=== PATIENT | female | born 1965 | race Caucasian/White ===

== ENCOUNTER 2023-04-03 14:46 | Outpatient (AMB) | payer BC, SELFPAY ==
--- NOTE | 2023-04-03 14:53 | A.OFFVIS_ITS ---
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 I can get them from 4 hours to 2 days Allergies Sulfa (Sulfonamide Antibiotics) Allergy (Intermediate, Verified 04/07/23 14:07) Rash sulfite Allergy (Mild, Verified 04/07/23 14:07) Vomiting Medication List - Last Reconciled 04/03/23 by FANY Rae bupropion HCl (Wellbutrin SR) 100 mg PO DAILY cholecalciferol (vitamin D3) 25 mcg PO DAILY esomeprazole magnesium (Nexium) 20 mg PO DAILY mecobalamin (vitamin B12) 1,000 mcg PO DAILY sucralfate 1 g PO BID HPI HPI Comments History of Present Illness Details Right-handed 57-yr-old female presents for new pt evaluation of headache disorder. PMH is significant for: Lifelong anemia, GERD, sleep difficulties, right eye strabismus. Pt reports she starting having bothersome headaches about a year ago, in Feb 2022. No specific precipitating triggers. Denies previous h/o bothersome headaches. Does note a life long head tilt to the right. Her neck has always been tight. Endorses bruxism, wears a mouth guard every night. Denies head tremor. Denies diploia. Denies dizziness. Since the onset of the headaches, she has tried muscle relaxers, physical therapy, massage, adhesive hot pads, CBD or Aspercreme under the jaw, professional massage, meditation, stretching, and taking a slow walk, which can help but have not fully prevented disabling headaches. She does note that after the massage she will have less of a head tilt. Patient also endorses a history of nocturnal foot cramps, restless leg syndrome- creepy crawling sensation in left lower extremity- managed with stretching or rarely p.r.n. clonazepam, back pain. Rarely lightheadedness w/ bending over. Pertinent denials include: Tremor, constipation, dizziness. Denies family history of tremor or movement disorder. Headache questionnaire: Previous work-up? C-spine x-ray- cervical stenosis. Typical headache characteristics: Prodrome symptoms? Unsure Aura? Denies Location, quality, characteristics? Unilateral (right or left sided) cervical paraspinal deep dull severe pain, a/w ipsilateral jaw pain, occass ipsilateral facial spasm/tension. this can then move to the alternate side. Pain intensity? can be severe Associated symptoms? photophobia, nausea, dry heaves. Focal weakness, Parethesias, Autonomic s/s? denies Postdrome? fatigue, GI upset, head/jaw/shoulder pain. Triggers? shoulder tension, sitting for a long time on her computer. Time of day? almost always when she wakes up Duration? If severe- 1-2 days in total. If milder and responsive to shoulder/neck massage- 4 hrs. Frequency? In February she had 7 headache attacks, 1 of which lasted 2 days How does headache impact your life? 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 Current acute medication use/interventions: Tylenol does not help. Does not use Advil d/t NSAIDs causes gastritis. Previous acute medication use: Denies Current preventative medication use: Cyclobenzaprine 5mg qhs prn- helps but causes am grogginess. Previous preventative medication use: Denies Non-pharmacological interventions: tries to massage her neck, or heat- may take the edge off if more severe, or help if milder. [facility] Family History (Updated 04/03/23 @ 15:06 by SEJAL Gunter) Father HTN (hypertension) Stroke Sister Diabetes Mother Diverticulitis Social History (Updated 04/03/23 @ 14:59 by SEJAL Gunter) Alcohol intake: never Patient Tobacco Use Status: Never used Tobacco Review of Systems Const Details: See scanned ROS form Physical Exam Vital Signs: Last Vital Signs Pulse 77 04/03/23 14:54 BP 118/70 04/03/23 14:54 Pulse Ox 100 04/03/23 14:54 Oxygen Delivery Method Room Air 04/03/23 14:54 BMI result Body Mass Index 20.8 HEENT Other: No palpable scalp tenderness. Head: Yes normocephalic Resp Effort & Inspection: normal respiratory effort and able to speak in complete sentences Neuro Other: Alert and oriented x3 EOM intact with exception of right eye deviates laterally on convergence No nystagmus Mild lower facial asymmetry- ? Left masseter region hypertrophy Right spasmodic torticollis. Marked bilateral posterior paraspinal muscle tightness and tenderness. Bilateral, R > L, sternocleidomastoid mastoid muscle tightness and tenderness Left lower focal tenderness on palpation., nonradiating No head or peripheral tremor. No notable tone in upper extremities. Goixsk-vq-zvhw intact. Gait normal Tandem walk normal. Romberg negative. DTRs 2+ throughout. Deep tendon reflexes (DTR's): Right triceps reflex intensity grade: 2+, Left triceps reflex intensity grade: 2+, Rt Biceps (C5, C6): 2+, Left biceps reflex intensity grade: 2+, Right brachioradialis reflex intensity grade: 2+, Left brachioradialis reflex intensity grade: 2+, Right patellar reflex intensity grade: 2+ and Left patellar reflex intensity grade: 2+ Pupils: Normal pupillary reactivity/response: bilateral Psych Appearance: grossly normal Mental Status: mental status grossly normal Speech and movement: Normal speech and movement present Affect: normal affect Attitude: cooperative Thought process: Normal thought process present Assessment & Plan Assessment & Plan (1) Spasmodic torticollis: Code(s): G24.3 - Spasmodic torticollis (2) New onset headache: Comment: Severe posterior mid-cervical pain into right or left occipital pain a/w ipsilateral lower temporal, and jaw pain A/w ipsilateral facial spasm/tension, photophobia, nausea, dry heaves. Code(s): R51.9 - Headache, unspecified (3) Cervicalgia of jtkxwonu-zilpiys-ugxrw region: Code(s): M54.2 - Cervicalgia (4) Strabismic amblyopia of right eye: Code(s): H53.031 - Strabismic amblyopia, right eye (5) Cervical spinal stenosis: Code(s): M48.02 - Spinal stenosis, cervical region Plan Will request recent labs from PCP- consider checking additional labs upon review. Pt is advised to undergo c-spine MRI w/wo to assess for secondary etiologies of painful spasmodic torticollis s/s Pt is advised to undergo brain MRI w/wo to assess for secondary etiologies of spasmodic torticollis, facial asymmetry, right eye stabismus/amblyopia, and worsening headaches. Pt requests open MRI and may use her Clonazepam 1 tab prior to MRI- advised to have someone else drive her. Start Botox 100 units IM q 12 weeks for spasmodic torticollis. Sumatriptan- was ordered but changed d/t pt has a sulfa and sulfite allergy. Thus, trial Rizatriptan 10mg tab- 1/4 - 1 tab at onset of headache, MR x's 1 (max 2 tabs per day), may take w/ Tylenol 650-1000mg prn. Hold cyclobenzaprine. Start Baclofen 5-10mg qhs prn. f/u in 2 months or sooner prn. Orders: Orders MR head/brain wo/w con 04/03/23 G24.3 - Spasmodic torticollis, H53.031 - Strabismic amblyopia, right eye, Q67.0 - Congenital facial asymmetry, R51.9 - Headache, unspecified MR cervical spine wo con 04/03/23 G24.3 - Spasmodic torticollis, M48.02 - Spinal stenosis, cervical region, M54.2 - Cervicalgia Medications: New clonazepam administer 30 minutes before bedtime 0.5 mg PO BEDTIME PRN onabotulinumtoxinA (Botox) inject up to 100 units into bilateral lateral and posterior cervical, occipital muscles. 100 units IM ONCE 12 weeks 1 ea 3RF G24.3 - Spasmodic torticollis baclofen 5 - 10 mg (1 - 2 x 5 mg) PO BEDTIME 30 days PRN 60 tabs 1RF muscle spasm rizatriptan max 2 tabs per day or 4 tabs per week 5 - 10 mg (0.5 - 1 x 10 mg) PO Q2H 21 days PRN 12 tabs 3RF migraine headache Coding Level of Care Code New Pt Level 4 (05165) Diagnoses Spasmodic torticollis G24.3 New onset headache R51.9 Cervicalgia of kcflulcw-jbccpht-ajkmu region M54.2 Strabismic amblyopia of right eye H53.031 Cervical spinal stenosis M48.02
[2023-04-03 14:54] VITALS: BP 118/70; PULSE 77; O2SAT 100; BMI 20.8
== END 2023-04-03 16:13 | disposition home or self-care (01) ==
PROVIDERS: PCP Pediatrics; Visit Provider Nurse Practitioner Family
DX: G24.3 Spasmodic torticollis (principal); R51.9 Headache, unspecified; M54.2 Cervicalgia; H53.031 Strabismic amblyopia, right eye; M48.02 Spinal stenosis, cervical region
CPT/HCPCS: 99204

== ENCOUNTER → 2023-04-03 14:46 | Outpatient (BNVA) | payer BC, SELFPAY | PROVIDERS: PCP Pediatrics; Visit Provider Nurse Practitioner Family ==

== ENCOUNTER 2023-06-02 07:32 | Outpatient (REF) | payer BC, SELFPAY ==
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
== END 2023-06-02 07:33 | disposition home or self-care (01) ==
LOC: HO.LAB 07:32
PROVIDERS: PCP Pediatrics; Visit Provider Nurse Practitioner Family
DX: M79.5 Residual foreign body in soft tissue (principal); R51.9 Headache, unspecified; M54.2 Cervicalgia; G24.3 Spasmodic torticollis; M48.02 Spinal stenosis, cervical region
CPT/HCPCS: 72100

== ENCOUNTER 2023-06-02 07:32 | Outpatient (AMB) | payer BC, SELFPAY ==
[2023-06-02 07:47] VITALS: BP 102/60; PULSE 83; RESP 16; O2SAT 100; BMI 20.6
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
== END 2023-06-02 08:32 | disposition home or self-care (01) ==
PROVIDERS: PCP Pediatrics; Visit Provider Nurse Practitioner Family
DX: R51.9 Headache, unspecified (principal); M54.2 Cervicalgia; G24.3 Spasmodic torticollis; M48.02 Spinal stenosis, cervical region
CPT/HCPCS: 99214

== ENCOUNTER 2023-07-14 14:11 | Outpatient (AMB) | payer BC, SELFPAY ==
--- NOTE | 2023-07-14 14:47 | MHC.OFFVIS ---
Vital Signs 07/14/23 14:48 Height 5 ft 4 in Weight 120 lb BMI 20.6 BP 120/68 Blood Pressure Location Rt brachial Position Sitting Respiration 17 Pulse 87 Pulse Source Pulse Oximeter Pulse Oximetry (%) 98 Oxygen Delivery Method Room Air Intake Visit Reasons: BOTOX - Confirmed Intake Note: Pt presents for Botox injections. Swing Grinder Required: No Allergies Sulfa (Sulfonamide Antibiotics) Allergy (Intermediate, Verified 07/14/23 14:47) Rash sulfite Allergy (Mild, Verified 07/14/23 14:47) Vomiting Medication List - Last Reconciled 07/14/23 by Macey Robison MD baclofen 5 - 10 mg (1 - 2 x 5 mg) PO BEDTIME PRN 30 days bupropion HCl SR (Wellbutrin SR) 100 mg PO DAILY cholecalciferol (vitamin D3) 25 mcg PO DAILY clonazepam 0.5 mg PO BEDTIME PRN esomeprazole magnesium (Nexium) 20 mg PO DAILY mecobalamin (vitamin B12) 1,000 mcg PO DAILY onabotulinumtoxinA (Botox) 100 units IM ONCE 12 weeks rizatriptan 5 - 10 mg (0.5 - 1 x 10 mg) PO Q2H PRN 21 days sucralfate 1 g PO BID HPI Comments Details: 58y/o female comes for treatment of her cervical dystonia ? Side effects including spread of toxin effect, dysphagia, breathing difficulties , bronchitis etc was discussed in detail and the patient agreed to the procedure.An informed consent was obtained ??? Botulinum toxin type A 100units X 1 -was diluted with 2 cc of normal saline at a concentration of 25 units in 0.5cc saline. Lot number [id number] expiration 06/2025 ??? Muscles injected ??? olaf Splenius - 25 units each ??? Olaf levator 25 units each ? Total used 100 units PFSH Family History Father HTN (hypertension) Stroke Sister Diabetes Mother Diverticulitis Social History Alcohol intake: never Patient Tobacco Use Status: Never used Tobacco Physical Exam Vital Signs: Last Vital Signs Pulse 87 07/14/23 14:48 Resp 17 05/21/24 14:48 BP 120/68 07/14/23 14:48 Pulse Ox 98 07/14/23 14:48 Oxygen Delivery Method Room Air 07/14/23 14:48 BMI result Body Mass Index 20.6 Const General: cooperative and no acute distress Orientation/consciousness: patient oriented x3 Neuro Other: Mild lower facial asymmetry- ? Left masseter region hypertrophy Right spasmodic torticollis. Marked bilateral posterior paraspinal muscle tightness and tenderness. Bilateral, R > L, sternocleidomastoid mastoid muscle tightness and tenderness General: patient oriented x3 Cognition (Neuro): normal cognition Office Procedures Botulinum toxin Injection 42536 - Dystonia Procedure code (CPT) selection complete Office Meds onabotulinumtoxinA 100 unit solution for injection Performing Provider: Macey Robison MD Performing Location: [facility] [place] [facility] Administered by: Macey Robison MD on 07/14/23 15:11 Dose Route Admin Location Dispensed Lot Number Expiration Date [facility] [employer] Operator 100 unit IM 100 units [id number] 06/23/25 0418-3168-53 [employer]ERGAN/BOTOX Comments: see HPI Assessment & Plan Assessment & Plan (1) Spasmodic torticollis: Code(s): G24.3 - Spasmodic torticollis Category: Medical Plan Patient tolerated the procedure well SHe will call with any side effects Orders: Orders AMB Botulinum toxin Injection Today G24.3 - Spasmodic torticollis Medications: New onabotulinumtoxinA 100 units IM ONCE 1 ea 0RF spasmodic torticollis G24.3 - Spasmodic torticollis Coding Level of Care Code Est Pt Level 1 (81229) Diagnoses Spasmodic torticollis G24.3 CPT Codes Botox Injection - Botox 4: 85800 - Dystonia ([id number])
[2023-07-14 14:48] VITALS: BP 120/68; PULSE 87; RESP 17; O2SAT 98; BMI 20.6
== END 2023-07-14 15:07 | disposition home or self-care (01) ==
PROVIDERS: PCP Pediatrics; Visit Provider Psychiatry & Neurology Neurology
DX: G24.3 Spasmodic torticollis (principal)
CPT/HCPCS: 64616

== ENCOUNTER → 2023-07-14 14:11 | Outpatient (BNVA) | payer BC, SELFPAY | PROVIDERS: PCP Pediatrics; Visit Provider Psychiatry & Neurology Neurology | DX: G24.3 Spasmodic torticollis (principal) | CPT/HCPCS: 64616; 99211; J0585 ==

== ENCOUNTER 2023-10-20 15:17 | Outpatient (AMB) | payer BC, SELFPAY ==
--- NOTE | 2023-10-20 15:27 | A.OFFVIS_ITS ---
Vital Signs 10/20/23 15:30 Height 5 ft 4 in Weight 120 lb BMI 20.6 BP 122/68 Blood Pressure Location Rt brachial Position Sitting Respiration 16 Pulse 76 Pulse Source Pulse Oximeter Pulse Oximetry (%) 100 Oxygen Delivery Method Room Air Intake Visit Reasons: BOTOX - Confirmed Intake Note: Pt presents to the office for Botox injections for spasmodic torticollis. Pump And Still Operator Required: No Allergies Sulfa (Sulfonamide Antibiotics) Allergy (Intermediate, Verified 10/20/23 15:27) Rash sulfite Allergy (Mild, Verified 10/20/23 15:27) Vomiting Medication List - Last Reconciled 10/20/23 by Macey Robison MD baclofen 5 - 10 mg (1 - 2 x 5 mg) PO BEDTIME PRN 30 days bupropion HCl SR (Wellbutrin SR) 100 mg PO DAILY cholecalciferol (vitamin D3) 25 mcg PO DAILY clonazepam 0.5 mg PO BEDTIME PRN esomeprazole magnesium (Nexium) 20 mg PO DAILY mecobalamin (vitamin B12) 1,000 mcg PO DAILY onabotulinumtoxinA (Botox) 100 units IM ONCE 12 weeks rizatriptan 5 - 10 mg (0.5 - 1 x 10 mg) PO Q2H PRN 21 days sucralfate 1 g PO BID HPI Comments Details: 58y/o female comes for treatment of her cervical dystonia ? Side effects including spread of toxin effect, dysphagia, breathing difficulties , bronchitis etc was discussed in detail and the patient agreed to the procedure.An informed consent was obtained ??? Botulinum toxin type A 100units X 1 -was diluted with 2 cc of normal saline at a concentration of 25 units in 0.5cc saline. Lot number [id number] expiration 09/2025 ??? Muscles injected ??? olaf Splenius - 25 units each ??? Olaf levator 25 units each ? Total used 100 units PFSH Family History Father HTN (hypertension) Stroke Sister Diabetes Mother Diverticulitis Social History Alcohol intake: never Patient Tobacco Use Status: Never used Tobacco Physical Exam Vital Signs: Last Vital Signs Pulse 76 08/27/24 15:30 Resp 16 10/20/23 15:30 BP 122/68 10/20/23 15:30 Pulse Ox 100 10/20/23 15:30 Oxygen Delivery Method Room Air 10/20/23 15:30 BMI result Body Mass Index 20.6 Const General: cooperative and no acute distress Orientation/consciousness: patient oriented x3 Neuro Other: Mild lower facial asymmetry- ? Left masseter region hypertrophy Right spasmodic torticollis. Marked bilateral posterior paraspinal muscle tightness and tenderness. Bilateral, R > L, sternocleidomastoid mastoid muscle tightness and tenderness General: patient oriented x3 Cognition (Neuro): normal cognition Office Procedures Botulinum toxin Injection 51236 - Dystonia Procedure code (CPT) selection complete Office Meds onabotulinumtoxinA 100 unit solution for injection Performing Provider: Macey Robison MD Performing Location: [facility] [place] [facility] Administered by: Macey Robison MD on 10/20/23 15:56 Dose Route Admin Location Dispensed Lot Number Expiration Date [facility] Healthcare Market Consultant 100 unit IM 100 units [id number] 09/23/25 4109-1652-68 ALLERGAN/BOTOX Comments: see hpi Assessment & Plan Assessment & Plan (1) Spasmodic torticollis: Code(s): G24.3 - Spasmodic torticollis Category: Medical Plan Patient tolerated the procedure well SHe will call with any side effects suggested neck extension exercises Magnesium Orders: Orders AMB Botulinum toxin Injection Today G24.3 - Spasmodic torticollis Medications: New onabotulinumtoxinA 100 units IM ONCE 1 ea 0RF torticollis G24.3 - Spasmodic torticollis Coding Level of Care Code Est Pt Level 1 (75377) Diagnoses Spasmodic torticollis G24.3 CPT Codes Botox Injection - Botox 4: 45631 - Dystonia ([id number])
[2023-10-20 15:30] VITALS: BP 122/68; PULSE 76; RESP 16; O2SAT 100; BMI 20.6
== END 2023-10-20 15:50 | disposition home or self-care (01) ==
PROVIDERS: PCP Pediatrics; Visit Provider Psychiatry & Neurology Neurology
DX: G24.3 Spasmodic torticollis (principal)
CPT/HCPCS: 64616

== ENCOUNTER → 2023-10-20 15:17 | Outpatient (BNVA) | payer BC, SELFPAY | PROVIDERS: PCP Pediatrics; Visit Provider Psychiatry & Neurology Neurology | DX: G24.3 Spasmodic torticollis (principal) | CPT/HCPCS: 64616; 99211; J0585 ==

== ENCOUNTER 2023-12-02 10:54 | Outpatient (AMB) | payer BC, SELFPAY ==
[2023-12-02 11:00] VITALS: BMI 20.6
--- NOTE | 2023-12-02 11:00 | MHC.OFFVIS ---
Vital Signs 12/02/23 11:00 Height 5 ft 4 in Weight 120 lb BMI 20.6 Intake Visit Reasons: 6 mo f/u Intake Note: Patient presents for 6 month follow up. patient still having headaches not nearly as bad. Allergies Sulfa (Sulfonamide Antibiotics) Allergy (Intermediate, Verified 12/02/23 11:02) Rash sulfite Allergy (Mild, Verified 12/02/23 11:02) Vomiting Medication List - Last Reconciled 12/02/23 by FANY Rae baclofen 5 - 10 mg (1 - 2 x 5 mg) PO BEDTIME PRN 30 days bupropion HCl SR (Wellbutrin SR) 100 mg PO DAILY cholecalciferol (vitamin D3) 25 mcg PO DAILY clonazepam 0.5 mg PO BEDTIME PRN esomeprazole magnesium (Nexium) 20 mg PO DAILY mecobalamin (vitamin B12) 1,000 mcg PO DAILY onabotulinumtoxinA (Botox) 100 units IM ONCE 12 weeks rizatriptan 5 - 10 mg (0.5 - 1 x 10 mg) PO Q2H PRN 21 days sucralfate 1 g PO BID HPI Comments Details: 58-yr-old female presents for f/u visit. Pt denies any significant interval medical changes. She has started Botox, which has helped. She has also started OTC Mag glycinate 50mg qd. Baclofen does help- using prn. Rizatriptan 5mg helps effectively for headache and nausea. Her head tilt/turn is improved but still present. After second round of Botox, the headache frequency has reduced from daily to 2 x's per week. The headaches are now better in terms of pain, was 8-9/10 now 5/10. She also has episodes shooting pain from neck up through occipital region and over the head triggered by either right or left lateral movement. 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 She has tried to use a chin/anterior neck support, when she is on the computer or phone more- and found that after starting this, she had a 2 week period without a headache. She is doing home cervical and jaw stretches. Baseline headache characteristics: Severe, Unilateral (right or left sided) cervical paraspinal deep dull severe pain, a/w ipsilateral jaw pain, occass ipsilateral facial spasm/tension. this can then move to the alternate side a/w photophobia, nausea, dry heaves. PFSH Family History Father HTN (hypertension) Stroke Sister Diabetes Mother Diverticulitis Social History Alcohol intake: never Patient Tobacco Use Status: Never used Tobacco Physical Exam Vital Signs: BMI result Body Mass Index 20.6 Const General: cooperative and no acute distress Orientation/consciousness: patient oriented x3 Resp Effort & Inspection: normal respiratory effort and able to speak in complete sentences Neuro Other: No palpable scalp tenderness. Mild lower facial asymmetry- ? Left masseter region hypertrophy Right spasmodic torticollis- less prominent today Marked bilateral posterior paraspinal muscle tightness and tenderness. Bilateral, R > L, sternocleidomastoid mastoid muscle tightness and tenderness General: patient oriented x3 Cranial nerves: Yes CN's II-XII intact bilaterally Cognition (Neuro): normal cognition Psych Appearance: grossly normal Mental Status: mental status grossly normal Speech and movement: Clear speech present Affect: normal affect Attitude: cooperative Assessment & Plan Assessment & Plan (1) Spasmodic torticollis: Code(s): G24.3 - Spasmodic torticollis Category: Medical (2) Cervical spinal stenosis: Code(s): M48.02 - Spinal stenosis, cervical region Category: Medical (3) Bilateral occipital neuralgia: Code(s): M54.81 - Occipital neuralgia Category: Medical (4) Migraine without aura: Code(s): G43.009 - Migraine without aura, not intractable, without status migrainosus Category: Medical (5) Cervicalgia of ltimkkfc-fpbuajx-ncmvx region: Code(s): M54.2 - Cervicalgia Category: Medical Plan For cervical dystonia s/s: Continue Botox 100 units IM q 12 weeks for spasmodic torticollis. Continue Baclofen 5-10mg qhs prn. Continue Magnesium 50mg qhs. Continue massage, stretching, chin support. Try adding core/posterior core strengthening exercises. For occipital neuralgia s/s: Will refer to pain management for eval for trigger point and ON block inejctions. For migraine w/o aura: Likely exacerbated by cervical dystonia. Continue Rizatriptan 10mg tab- 1/2 - 1 tab at onset of headache, MR x's 1 (max 2 tabs per day), may take w/ Tylenol 650-1000mg prn. Migraine tx contraindications- Sumatriptan d/t pt has a sulfa and sulfite allergy. f/u in 6 months or sooner prn. Orders: Referrals Pain Management Referral G24.3 - Spasmodic torticollis, M48.02 - Spinal stenosis, cervical region, M54.81 - Occipital neuralgia Medications: New magnesium 50mg po QHS orally; Refilled rizatriptan max 2 tabs per day or 4 tabs per week 5 - 10 mg (0.5 - 1 x 10 mg) PO Q2H 21 days PRN 12 tabs 6RF migraine headache baclofen 5 - 10 mg (1 - 2 x 5 mg) PO BEDTIME 30 days PRN 60 tabs 3RF muscle spasm Coding Level of Care Code Est Pt Level 4 (38725) Diagnoses Spasmodic torticollis G24.3 Cervical spinal stenosis M48.02 Bilateral occipital neuralgia M54.81 Migraine without aura G43.009 Cervicalgia of qjrdxdkd-vgvdhbm-toglw region M54.2
== END 2023-12-02 11:48 | disposition home or self-care (01) ==
PROVIDERS: PCP Pediatrics; Visit Provider Nurse Practitioner Family
DX: G24.3 Spasmodic torticollis (principal); M48.02 Spinal stenosis, cervical region; M54.81 Occipital neuralgia; G43.009 Migraine without aura, not intractable, without status migrainosus; M54.2 Cervicalgia
CPT/HCPCS: 99214

== ENCOUNTER → 2023-12-02 10:54 | Outpatient (BNVA) | payer BC, SELFPAY | PROVIDERS: PCP Pediatrics; Visit Provider Nurse Practitioner Family ==

== ENCOUNTER 2023-12-16 12:46 | Outpatient (AMB) | payer BC, SELFPAY ==
--- NOTE | 2023-12-16 12:54 | MHC.OFFVIS ---
Vital Signs 12/16/23 13:05 Height 5 ft 4 in Weight 127 lb 4 oz BMI 21.8 BP 132/56 L Blood Pressure Location Lt brachial Position Sitting Respiration 16 Pulse 90 Pulse Source Pulse Oximeter Pulse Oximetry (%) 98 Oxygen Delivery Method Room Air Intake Visit Reasons: Occipital Neuralgia Intake Note: Patient comes in for initial visit was referred by [facility]. Reports pain 1-2. Allergies Sulfa (Sulfonamide Antibiotics) Allergy (Intermediate, Verified 12/16/23 13:01) Rash sulfite Allergy (Mild, Verified 12/16/23 13:01) Vomiting HPI Comments Details: Amanda is very pleasant 58 years old female who presents in my office with complains on headaches. Reports pain in the back of the head radiating in the front of the head and behind the eye on either left or right side she never has this pain simultaneously together she has either left or right sided pain. Reports that this pain started 2 years ago. She reported that she can not sleep normally can not do activities of daily living she can not take care of herself but she can not function normally. She is working part-time she is self mobile. She reports that heat alleviates her pain. She reports that she received Botox injections in the past which makes her pain better. She also was prescribed of rizatriptan which helps her pain significantly. She reports that she can not sleep normally because of her pain she can not do activities of daily living she can take care of herself and she plus-minus can function normally. Her pain is usually severe in the morning and better and the end of the day. She recently stated that she starts her day in the morning with receptor 10 medication in 1 hour after that her pain is better. In terms of tissue damage he reports her pain as dull, sore, hurting, aching, heavy sensation tiring sensation exhausting sensation. She receives weekly massage therapy and minimally helps her pain. She never had physical therapy or chiropractic manipulations for this pain. She had multiple images done by [facility] in [facility] on her neck. She reported that there are some arthritis demonstrated on her cervical spine on those images. Her past medical history significant for dizziness and fainting anxiety and depression heart murmur anemia and digestive problem. Her past surgical history is negative. She denies any pain Irizarry's implants or defibrillators. She denies smoking cigarettes. She used to drink alcohol but now she denies drinking. She drinks caffeinated beverages. She denies recreational drugs. [facility] Family History Father HTN (hypertension) Stroke Sister Diabetes Mother Diverticulitis Social History Alcohol intake: never Patient Tobacco Use Status: Never used Tobacco Review of Systems Const All systems reviewed & are unremarkable except as noted in HPI and below ENT Reports Normal hearing present Neuro Reports Normal hearing present, Denies Abnormal speech present and Denies Sensory deficit (Neuro) Physical Exam Vital Signs: Last Vital Signs Pulse 90 12/16/23 13:05 Resp 16 12/16/23 13:05 BP 132/56 L 12/16/23 13:05 Pulse Ox 98 12/16/23 13:05 Oxygen Delivery Method Room Air 12/16/23 13:05 BMI result Body Mass Index 21.8 Const General: healthy appearing, comfortable, no acute distress and well developed Nutritional Appearance: average body habitus and well nourished Orientation/consciousness: patient oriented x3 Limitations: no limitations Eyes General: appearance normal, both eyes and all related structures Pupils: Equal, round and reactive pupils present EOM: EOMs intact bilaterally Neck Other: Limited layer range of motion of flexing had sideways. However free range of motion of flexing had backwards and forward. She denies pain with flexing had backwards and forward. She denies Valsalva maneuver aggravating her pain. She denies tenderness on palpation in paraspinal spinal region of cervical spine. She denies tenderness on percussion of the cervical spine midline in the projection of the spinous process of the cervical spine. Lhermitte maneuver is negative. Spurling maneuver is negative. Pain is mostly axial in nature without radiating into the bilateral upper extremities. She denies incontinence with urine or stool she denies urinary retention. Chest Chest palpation & inspection: normal inspection of the chest Resp Effort & Inspection: normal respiratory effort, able to speak in complete sentences, normal respiratory pattern, no audible wheezes and no cough Cardio Jugular venous distension: no JVD GI Inspection: Yes normal to inspection Neuro General: patient oriented x3 and gait normal Cranial nerves: Yes CN's II-XII intact bilaterally, Yes Equal, round and reactive pupils present, Yes Normal hearing present and Yes Ability to bilaterally elevate shoulders present Speech: No Abnormal speech present Gait exam (Neuro): Normal gait present Motor exam (neuro): 5/5 motor strength present throughout Sensory Exam: No Sensory deficit (Neuro) Extrem General: No pedal edema Psych Speech and movement: Normal speech and movement present Affect: normal affect Attitude: cooperative Thought process: Normal thought process present Thought content: Normal thought content present Insight: Good insight present (Psych) Judgement: Good judgement present (Psych) Assessment & Plan Assessment & Plan (1) Migraine without aura: Code(s): G43.009 - Migraine without aura, not intractable, without status migrainosus Category: Medical (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 I also offered her to perform diagnostic occipital nerve block of greater and lesser occipital nerves bilaterally. However patient stated that her insurance company considers all the injections including buttocks injections as a surgeries and they had her to pay a co-pay of 800 dollars. She refused to go for this procedures unless it is absolutely 100% necessary. I recommended her to try low-impact aerobic exercise as the elliptical machine or stationary bicycle 30 minutes a day 4 months with possibility of improvement her migraine headaches. If she tries this I aerobic exercise and it will not help her she will give us a call and we will schedule her for diagnostic medial branch blocks as described above. Patient Instructions: I here by testify that I spent 55 minutes in conversation with this patient as well as planning her care and organizing this note. Coding Level of Care Code New Pt Level 4 (24155) Diagnoses Migraine without aura G43.009 Spondylosis of cervical region without myelopathy or radiculopathy M47.812 Occipital neuralgia M54.81
[2023-12-16 13:05] VITALS: BP 132/56; PULSE 90; RESP 16; O2SAT 98; BMI 21.8
== END 2023-12-16 13:42 | disposition home or self-care (01) ==
PROVIDERS: PCP Pediatrics; Referring Provider Nurse Practitioner Family; Visit Provider Anesthesiology
DX: G43.009 Migraine without aura, not intractable, without status migrainosus (principal); M47.812 Spondylosis without myelopathy or radiculopathy, cervical region; M54.81 Occipital neuralgia
CPT/HCPCS: 99204

== ENCOUNTER → 2023-12-16 12:46 | Outpatient (BNVA) | payer BC, SELFPAY | PROVIDERS: PCP Pediatrics; Referring Provider Nurse Practitioner Family; Visit Provider Anesthesiology ==

== ENCOUNTER 2024-01-25 11:17 | Outpatient (AMB) | payer BC, SELFPAY ==
--- NOTE | 2024-01-25 11:18 | MHC.OFFVIS ---
Vital Signs 01/25/24 11:19 Height 5 ft 4 in Weight 127 lb BMI 21.8 Intake Visit Reasons: BOTOX Intake Note: Patient presents for botox Allergies Sulfa (Sulfonamide Antibiotics) Allergy (Intermediate, Verified 01/25/24 11:20) Rash sulfite Allergy (Mild, Verified 01/25/24 11:20) Vomiting Medication List - Last Reconciled 01/25/24 by Macey Robison MD baclofen 5 - 10 mg (1 - 2 x 5 mg) PO BEDTIME PRN 30 days bupropion HCl SR (Wellbutrin SR) 100 mg PO DAILY cholecalciferol (vitamin D3) 25 mcg PO DAILY esomeprazole magnesium (Nexium) 20 mg PO DAILY magnesium 50mg po QHS orally; mecobalamin (vitamin B12) 1,000 mcg PO DAILY onabotulinumtoxinA (Botox) 100 units IM ONCE 12 weeks rizatriptan 5 - 10 mg (0.5 - 1 x 10 mg) PO Q2H PRN 21 days sucralfate 1 g PO BID HPI Comments Details: 58y/o female comes for treatment of her cervical dystonia ? Side effects including spread of toxin effect, dysphagia, breathing difficulties , bronchitis etc was discussed in detail and the patient agreed to the procedure.An informed consent was obtained ??? Botulinum toxin type A 200units X 1 -was diluted with 4 cc of normal saline at a concentration of 25 units in 0.5cc saline. Lot number [id number] expiration 04/2026 ??? Muscles injected ??? marin Splenius - 50 units each ??? Right levator 50 units each right semispinalis 25 units Left levator 25 units ? Total used 200 units PFSH Family History Father HTN (hypertension) Stroke Sister Diabetes Mother Diverticulitis Social History Alcohol intake: never Patient Tobacco Use Status: Never used Tobacco Physical Exam Vital Signs: BMI result Body Mass Index 21.8 Const General: cooperative and no acute distress Orientation/consciousness: patient oriented x3 Neuro Other: Mild lower facial asymmetry- ? Left masseter region hypertrophy Right spasmodic torticollis. Marked bilateral posterior paraspinal muscle tightness and tenderness. 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 IM 200 units [id number] ALLERGAN/BOTOX Comments: see HPI Assessment & Plan Assessment & Plan (1) Spasmodic torticollis: Code(s): G24.3 - Spasmodic torticollis Category: Medical Plan Patient tolerated the procedure well SHe will call with any side effects suggested neck extension exercises Magnesium Orders: Orders AMB Botulinum toxin Injection Today G24.3 - Spasmodic torticollis Medications: New onabotulinumtoxinA 200 units IM ONCE 1 ea 0RF spasmodic torticollis G24.3 - Spasmodic torticollis Coding Level of Care Code Est Pt Level 1 (32436) Diagnoses Spasmodic torticollis G24.3 CPT Codes Botox Injection - Botox 4: 45037 - Dystonia ([id number])
[2024-01-25 11:19] VITALS: BMI 21.8
== END 2024-01-25 11:55 | disposition home or self-care (01) ==
PROVIDERS: PCP Pediatrics; Visit Provider Psychiatry & Neurology Neurology
DX: G24.3 Spasmodic torticollis (principal)
CPT/HCPCS: 64616

== ENCOUNTER → 2024-01-25 11:17 | Outpatient (BNVA) | payer BC, SELFPAY | PROVIDERS: PCP Pediatrics; Visit Provider Psychiatry & Neurology Neurology | DX: G24.3 Spasmodic torticollis (principal) | CPT/HCPCS: 64616; 99211; J0585 ==

== ENCOUNTER 2024-04-26 13:30 | Outpatient (AMB) | payer BC, SELFPAY ==
[2024-04-26 13:38] VITALS: BMI 21.8
--- NOTE | 2024-04-26 13:38 | MHC.OFFVIS ---
Vital Signs 04/26/24 13:38 Height 5 ft 4 in Weight 127 lb BMI 21.8 Intake Visit Reasons: BOTOX Intake Note: patient here for botox injection. Practice supplied Allergies Sulfa (Sulfonamide Antibiotics) Allergy (Intermediate, Verified 04/26/24 13:48) Rash sulfite Allergy (Mild, Verified 04/26/24 13:48) Vomiting Medication List - Last Reconciled 04/26/24 by Macey Robison MD baclofen 5 - 10 mg (1 - 2 x 5 mg) PO BEDTIME PRN 30 days bupropion HCl SR (Wellbutrin SR) 100 mg PO DAILY cholecalciferol (vitamin D3) 25 mcg PO DAILY esomeprazole magnesium (Nexium) 20 mg PO DAILY magnesium 50mg po QHS orally; mecobalamin (vitamin B12) 1,000 mcg PO DAILY onabotulinumtoxinA (Botox) 100 units IM ONCE 12 weeks rizatriptan 5 - 10 mg (0.5 - 1 x 10 mg) PO Q2H PRN 21 days sucralfate 1 g PO BID HPI Comments Details: 58y/o female comes for treatment of her cervical dystonia ? Side effects including spread of toxin effect, dysphagia, breathing difficulties , bronchitis etc was discussed in detail and the patient agreed to the procedure.An informed consent was obtained ??? Botulinum toxin type A 200units X 1 -was diluted with 4 cc of normal saline at a concentration of 25 units in 0.5cc saline. Lot number [id number] expiration 04/2026 ??? Muscles injected ??? olaf Splenius - 50 units each ??? Right levator 50 units each right semispinalis 25 units Left levator 25 units Right pterygoid 15 units Olaf occipitalis 15 units each ? Total used 195units Discarded 5 units PFSH Family History Father HTN (hypertension) Stroke Sister Diabetes Mother Diverticulitis Social History Alcohol intake: never Patient Tobacco Use Status: Never used Tobacco Physical Exam Vital Signs: BMI result Body Mass Index 21.8 Const General: cooperative and no acute distress Orientation/consciousness: patient oriented x3 Neuro Other: Mild lower facial asymmetry- ? Left masseter region hypertrophy Right spasmodic torticollis. Marked bilateral posterior paraspinal muscle tightness and tenderness. 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 200 unit IM 200 units [id number] ALLERGAN/BOTOX Comments: see HPI Assessment & Plan Assessment & Plan (1) Spasmodic torticollis: Code(s): G24.3 - Spasmodic torticollis Category: Medical Plan Patient tolerated the procedure well SHe will call with any side effects suggested neck extension exercises Magnesium Orders: Orders AMB Botulinum toxin Injection Today G24.3 - Spasmodic torticollis Medications: New onabotulinumtoxinA 200 units IM ONCE 1 ea 0RF torticollis G24.3 - Spasmodic torticollis Coding Level of Care Code Est Pt Level 1 (38715) Diagnoses Spasmodic torticollis G24.3 CPT Codes Botox Injection - Botox 4: 17974 - Dystonia ([id number])
--- OUTSIDE RECORDS SUMMARY | 2024-04-26 16:58 | XMS_ITS | Data Portability ---
Author Organization [facility], , [facility] Address [address] [place] [address] Assessment No assessment recorded. Plan of Treatment Reminders Order Date Submit Date Provider Last Modified By Organization Details Last Modified Time Details Appointments None record ed. Lab None record ed. Referral None record ed. Procedures None record ed. Surgeries None record ed. Imaging None record ed. Medication Orders None record ed. Patient TargetsNo targets recorded. Patient InstructionsNo instructions recorded. Reason for Referral None Reported. Results Created Date Observation Date Name Description Value Unit Range Abnormal Flag Note LastModifiedBy Organization Detail LastModifiedTime Result Notes None recorded. Procedures Surgical History Date Name Laterality Status Provider Name and Address Organization Details Recorded Time 9 Micky - Upper Endoscopy completed Triston Weeks MD [address] [place] [address], [phone], [facility] 01/12/2019 07:45:20 5 Can - Colonoscopy completed Thomas North MD [address] [place] [address], [phone], [facility] 02/05/2015 08:45:03 5 Can - EGD completed Thomas North MD [address] [place] [address], [phone], [facility] 12/18/2014 12:28:29 Imaging Results None recorded. Procedure Notes None recorded. Medical Equipment None Reported. Allergies Allergen ID Allergen Name Allergen Category Reaction Reaction Severity Criticality Documentation Date Start Date Code Code System Note Provider Name and Address Organization Details Recorded Time [id number] Substance with sulfonami de structure and antibacte rial mechanism of action (substanc e) medicatio n hives Not available Not available 01/06/2019 29823 800 SNOMED Noemy avila RN [facility], [facility] 9 16:11:46 [id number] hydrocodo ne Not available tachycard ia vomiting Not available Not available Not available 01/06/2019 5489 RxNorm Noemy avila RN null, [facility] 9 16:12:29 [id number] erythromy konstantin medicatio n nausea Not available Not available 01/06/2019 4053 RxNorm Noemy avila RN null, [facility] 9 16:12:50 Medications Name Sig Start Date Stop Date Status Note LastModified by Organization Details LastModified Time sucralfate 1 gram tablet active Not Available Not Available Not Available prochlorperaz ine maleate 10 mg tablet active Not Available Not Available Not Available ranitidine 300 mg capsule active Not Available Not Available Not Available bupropion HCl 75 mg tablet TAKE 1 TABLET BY MOUTH TWICE A DAY active Not Available Not Available No t Available magnesium citrate oral solution USE DIRECTED active Not Available Not Available No t Available bisacodyl 5 mg tablet,delaye d release 4 TABS WITH 8OZ OF WATER ONCE THE DAY BEFORE PROCEDURE ORALLY 1 DAY active Not Available Not Available No t Available ondansetron 4 mg disintegratin g tablet active Not Available Not Available Not Available nitrofurantoi n monohydrate/m acrocrystals 100 mg capsule active Not Available Not Available Not Available Klonopin active Not Available Not Avai lable Not Available Flonase active Not Available Not Avail able Not Available Benadryl active Not Available Not Avai lable Not Available Metamucil active Not Available Not Yudith ilable Not Available Mylanta active Not Available Not Avail able Not Available Nexium active Not Available Not Availa ble Not Available Fluvirin 1333-8686 45 mcg (15 mcg x 3)/0.5 mL intramuscular suspension active Not Available Not Available N ot Available Flucelvax 1200-4105 (PF) 45 mcg (15 mcg x 3)/0.5 mL IM syringe active Not Available Not Available Not Available Flucelvax Quad (PF) 60 mcg (15 mcg x 4)/0.5 mL IM syringe active Not Available Not Available Not Available Vitals None Recorded Social History None recorded. Functional Status None recorded. Mental Status None recorded. Family History Nothing Reported. Medical History No medical history recorded. Gynecological HistoryNo gynecological history recorded. Obstetrics History GPAL:G 0 P 0 0 0 0 Past Encounters Encounter ID Performer Location Encounter Start Date Encounter Closed Date Diagnosis/Indication Diagnosis SNOMED-CT Code Diagnosis ICD10 Code Diagnosis Note [id number] Cris Trinidads [facility], [address] [address] 12/18/2014 10:07:13 12/18/2014 13:34:38 [id number] Cris Lisa [facility], [address] [address] 02/05/2015 07:01:43 02/05/2015 13:26:43 [id number] Graciela Steward RN [facility], [address] [address] 01/12/2019 06:42:02 01/12/2019 10:42:28 Health Concerns Section Related Observation LastModified by Organization Detai ls LastModified Time None Recorded Concern Status LastModified by Organization Details LastModified Time None Recorded Advance Directives Directive None Recorded Payers Encounter Date Sequence Insurance Name Policy Number Policy Robertson Covered Member ID Robertson Member ID Guarantor Name 12/18/2014 1 [place] [id number] Ronny Zacarias [id number] Amanda Borja 02/05/2015 1 [place] [employer] [place] [id number] Ronny Zacarias [id number] Amanda Borja 01/12/2019 1 [place] [employer] [place] [id number] Ronny Zacarias [id number] Amanda Borja OBGyn Episode No OBEpisode recorded.
== END 2024-04-26 15:21 | disposition home or self-care (01) ==
PROVIDERS: PCP Pediatrics; Visit Provider Psychiatry & Neurology Neurology
DX: G24.3 Spasmodic torticollis (principal)
CPT/HCPCS: 64616

== ENCOUNTER → 2024-04-26 13:30 | Outpatient (BNVA) | payer BC, SELFPAY | PROVIDERS: PCP Pediatrics; Visit Provider Psychiatry & Neurology Neurology | DX: G24.3 Spasmodic torticollis (principal) | CPT/HCPCS: 64616; 99211; J0585 ==

== ENCOUNTER 2024-06-22 11:24 | Outpatient (AMB) | payer BC, SELFPAY ==
[2024-06-22 11:43] VITALS: BP 120/68; PULSE 88; O2SAT 99; BMI 22.5
--- NOTE | 2024-06-22 11:43 | MHC.OFFVIS ---
Vital Signs 06/22/24 11:43 Height 5 ft 4 in Weight 131 lb BMI 22.5 BP 120/68 Blood Pressure Location Rt brachial Pulse 88 Pulse Source Pulse Oximeter Pulse Oximetry (%) 99 Oxygen Delivery Method Room Air Intake Visit Reasons: Follow Up Intake Note: Patient presents follow up for cervical dystonia. 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 Accompanied by: Self / Same As Patient Allergies Sulfa (Sulfonamide Antibiotics) Allergy (Intermediate, Verified 06/22/24 11:45) Rash sulfite Allergy (Mild, Verified 06/22/24 11:45) Vomiting Medication List - Last Reconciled 06/22/24 by FANY Rae baclofen 5 - 10 mg (1 - 2 x 5 mg) PO BEDTIME PRN 30 days bupropion HCl SR (Wellbutrin SR) 100 mg PO DAILY cholecalciferol (vitamin D3) 25 mcg PO DAILY esomeprazole magnesium (Nexium) 20 mg PO DAILY magnesium 50mg po QHS orally; mecobalamin (vitamin B12) 1,000 mcg PO DAILY onabotulinumtoxinA (Botox) 100 units IM ONCE 12 weeks rizatriptan 5 - 10 mg (0.5 - 1 x 10 mg) PO Q2H PRN 21 days sucralfate 1 g PO BID HPI Comments Details: 59-yr-old female presents for f/u visit of migraine and spasmodic torticollis Pt reports the botox has been helping to lessen the spasmodic torticollis and lessen her headache burden, however though her spasmodic torticollis symptoms are stable, the last session was not as effective for the headaches. Pt notes that the last Botox tx was slightly different than previous Botox tx's which were more helpful. She is wondering if she has both spasmodic torticollis and migraine headache- and wonders if she should could try Botox specifically for migraine. Pt reports she is now waking up 20 days per month with a headache, and has 7 more severe migraine attacks lasting 1-3 days per month (approx 10 more severe migraine days per month). She continues to have intermittent episodes shooting pain from neck up through occipital region and over the head triggered by either right or left lateral movement. She did see pain management however she did not feel that this was a good fit for her. 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 She has an upcoming PT appoint to trial dry needling. She continues to do jaw/cervical/shoulder stretches, exercises. She continues to have therapeutic massage. She is compliant with OTC Mag glycinate 50mg qd. Rizatriptan 5mg does help the migraine headache and nausea. Baseline headache characteristics: Severe, Unilateral (right or left sided) cervical paraspinal deep dull severe pain, a/w ipsilateral jaw pain, occass ipsilateral facial spasm/tension. this can then move to the alternate side a/w photophobia, nausea, dry heaves. PFSH Family History Father HTN (hypertension) Stroke Sister Diabetes Mother Diverticulitis Social History Alcohol intake: never Patient Tobacco Use Status: Never used Tobacco Physical Exam Vital Signs: Last Vital Signs Pulse 88 06/22/24 11:43 BP 120/68 06/22/24 11:43 Pulse Ox 99 06/22/24 11:43 Oxygen Delivery Method Room Air 06/22/24 11:43 BMI result Body Mass Index 22.5 Const General: cooperative and no acute distress Orientation/consciousness: patient oriented x3 Neuro Other: Mild lower facial asymmetry- ? Left masseter region hypertrophy Right spasmodic torticollis- though pt better able to correct. Marked bilateral posterior paraspinal muscle tightness and tenderness. Bilateral, R > L, sternocleidomastoid mastoid muscle tightness and tenderness General: patient oriented x3 Cognition (Neuro): normal cognition Assessment & Plan Assessment & Plan (1) Chronic migraine without aura: Code(s): G43.709 - Chronic migraine without aura, not intractable, without status migrainosus Category: Medical Qualifiers: Status migrainosus presence: without status migrainosus Intractability: not intractable Qualified Code(s): G43.709 - Chronic migraine without aura, not intractable, without status migrainosus (2) Spasmodic torticollis: Code(s): G24.3 - Spasmodic torticollis Category: Medical (3) Bilateral occipital neuralgia: Code(s): M54.81 - Occipital neuralgia Category: Medical Plan For cervical dystonia s/s: Continue Botox 100 units IM q 12 weeks for spasmodic torticollis. Continue Baclofen 5-10mg qhs prn. Continue Magnesium 50mg qhs. Continue massage, stretching, chin support. Concur with PT for dry needling. For occipital neuralgia s/s: Pt did have pain management eval for trigger point and ON block injections- however the provider was not a good fit for her. If symptoms worsen, consider referring elsewhere. For chronic migraine without aura, which is likely exacerbated by cervical dystonia: Prevention treatment: Advised she would need to try alternate preventative medications before insurance would cover Botox for chronic migraine. Patient is hesitant to trial TCA/beta-palmer at this point. Thus, patient is advised to start: Riboflavin 400 mg daily in the morning Co Q10 400 mg daily in the morning with food. Consider increasing magnesium 2 400-500 mg daily at bedtime. Continue Rizatriptan 10mg tab- 1/2 - 1 tab at onset of headache, MR gloria's 1 (max 2 tabs per day), may take w/ Tylenol 650-1000mg prn. Migraine tx contraindications- Sumatriptan d/t pt has a sulfa and sulfite allergy. f/u in 6 months or sooner prn. Coding Level of Care Code Est Pt Level 4 (19578) Diagnoses Chronic migraine without aura without status migrainosus, not intractable G43.709 Status migrainosus presence: without status migrainosus Intractability: not intractable Spasmodic torticollis G24.3 Bilateral occipital neuralgia M54.81
--- OUTSIDE RECORDS SUMMARY | 2024-06-22 13:04 | XMS_ITS | Data Portability ---
Author Organization [facility], , [facility] Address [address] [place] [address] Assessment No assessment recorded. Plan of Treatment [...] - Upper Endoscopy completed Triston Weeks MD [address] [place] [address], [phone], [facility] 01/12/2019 07:45:20 5 Can - Colonoscopy completed Thomas North MD [address] [place] [address], [phone], [facility] 02/05/2015 08:45:03 5 Can - EGD completed Thomas North MD [address] [place] [address], [phone], [facility] 12/18/2014 12:28:29 Imaging Results None recorded. Procedure Notes None recorded. Medical Equipment None Reported. Allergies Allergen ID Allergen Name Allergen Category Reaction Reaction Severity Criticality Documentation Date Start Date Code Code System Note Provider Name and Address Organization Details Recorded Time 904798 Substance with sulfonami de structure and antibacte rial mechanism of action (substanc e) medicatio n hives Not available Not available 01/06/2019 66688 8005 SNOMED Noemy avila RN [facility], [facility] 9 16:11:46 610104 hydrocodo ne Not available tachycard ia vomiting Not available Not available Not available 01/06/2019 5489 RxNorm Noemy avila RN null, [facility] 9 16:12:29 187791 erythromy konstantin medicatio n nausea Not available Not available 01/06/2019 4053 RxNorm Noemy avila RN null, [facility] 9 16:12:50 Medications Name Sig Start Date [...] Available Not Availa ble Not Available Fluvirin 4223-8351 45 mcg (15 mcg x 3)/0.5 mL intramuscular suspension active Not Available Not Available N ot Available Flucelvax 2221-8163 (PF) 45 mcg (15 mcg x 3)/0.5 [...] SNOMED-CT Code Diagnosis ICD10 Code Diagnosis Note [id number] Thomas North MD [facility], [address] [address] 12/18/2014 10:07:13 12/18/2014 13:34:38 [id number] Thomas North MD [facility], [address] [address] 02/05/2015 07:01:43 02/05/2015 13:26:43 [id number] Triston Weeks MD [facility], [address] [address] 01/12/2019 06:42:02 01/12/2019 10:42:28 Health Concerns Section Related Observation LastModified by Organization Detai ls LastModified Time None Recorded Concern Status LastModified by Organization Details LastModified Time None Recorded Advance Directives Directive None Recorded Payers Encounter Date Sequence Insurance Name Policy Number Policy Robertson Covered Member ID Robertson Member ID Guarantor Name 12/18/2014 1 [facility]: [employer] [id number] Ronny Zacarias [id number] Amanda Borja 02/05/2015 1 [facility]: [employer] [id number] Ronny Zacarias [id number] Amanda Borja 01/12/2019 1 [facility]: [employer] [id number] Ronny Zacarias [id number] Amanda Borja OBGyn Episode No OBEpisode recorded.
== END 2024-06-22 12:37 | disposition home or self-care (01) ==
LOC: HO.HSMS 11:24
PROVIDERS: PCP Pediatrics; Visit Provider Nurse Practitioner Family
DX: G43.709 Chronic migraine without aura, not intractable, without status migrainosus (principal); G24.3 Spasmodic torticollis; M54.81 Occipital neuralgia
CPT/HCPCS: 99214

== ENCOUNTER 2024-08-09 13:33 | Outpatient (AMB) | payer BC, SELFPAY ==
--- NOTE | 2024-08-09 13:44 | MHC.OFFVIS ---
Vital Signs 08/09/24 13:48 Weight 131 lb BP 112/78 Blood Pressure Location Rt brachial Position Sitting Pulse 74 Pulse Source Pulse Oximeter Pulse Oximetry (%) 99 Oxygen Delivery Method Room Air Intake Visit Reasons: Botox Intake Note: Patient presents for botox injection. practice supplied Allergies Sulfa (Sulfonamide Antibiotics) Allergy (Intermediate, Verified 08/09/24 13:49) Rash sulfite Allergy (Mild, Verified 08/09/24 13:49) Vomiting Medication List - Last Reconciled 08/09/24 by Macey Robison MD baclofen 5 - 10 mg (1 - 2 x 5 mg) PO BEDTIME PRN 30 days bupropion HCl SR (Wellbutrin SR) 100 mg PO DAILY cholecalciferol (vitamin D3) 25 mcg PO DAILY clonazepam 0.5 mg PO BID PRN esomeprazole magnesium (Nexium) 20 mg PO DAILY magnesium 50mg po QHS orally; magnesium 150 mg PO mecobalamin (vitamin B12) 1,000 mcg PO DAILY onabotulinumtoxinA (Botox) 100 units IM ONCE 12 weeks rizatriptan 5 - 10 mg (0.5 - 1 x 10 mg) PO Q2H PRN 21 days sucralfate 1 g PO BID HPI Comments Details: 58y/o female comes for treatment of her cervical dystonia ? Side effects including spread of toxin effect, dysphagia, breathing difficulties , bronchitis etc was discussed in detail and the patient agreed to the procedure.An informed consent was obtained ??? Botulinum toxin type A 200units X 1 -was diluted with 4 cc of normal saline at a concentration of 25 units in 0.5cc saline. Lot number [id number] expiration 04/2026 ??? Muscles injected Right splenius 50 units ??? left Splenius - 25units each ??? olaf levator 25units each right semispinalis 25 units Left semipinalis 10 units Olaf trapezius 15 units Right pterygoid 15 units Olaf occipitalis 15 units each ? Total used 200 units Discarded 0 units PFSH Family History Father HTN (hypertension) Stroke Sister Diabetes Mother Diverticulitis Social History Alcohol intake: never Patient Tobacco Use Status: Never used Tobacco Physical Exam Vital Signs: Last Vital Signs Pulse 74 08/09/24 13:48 BP 112/78 08/09/24 13:48 Pulse Ox 99 08/09/24 13:48 Oxygen Delivery Method Room Air 08/09/24 13:48 Const General: cooperative and no acute distress Orientation/consciousness: patient oriented x3 Neuro Other: Mild lower facial asymmetry- ? Left masseter region hypertrophy Right spasmodic torticollis. Marked bilateral posterior paraspinal muscle tightness and tenderness. Bilateral, R > L, sternocleidomastoid mastoid muscle tightness and tenderness General: patient oriented x3 Cognition (Neuro): normal cognition Office Procedures Botulinum toxin Injection 35367 - Migraine Procedure code (CPT) selection complete Office Meds onabotulinumtoxinA 200 unit solution for injection Performing Provider: Macey Robison MD Performing Location: [facility] Administered by: Macey Robison MD on 08/09/24 14:27 Dose Route Admin Location Dispensed Lot Number Expiration Date 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 200 units [id number] ALLERGAN/BOTOX Comments: see hpi Assessment & Plan Assessment & Plan (1) Spasmodic torticollis: Code(s): G24.3 - Spasmodic torticollis Category: Medical Plan Patient tolerated the procedure well SHe will call with any side effects suggested neck extension exercises Magnesium Orders: Orders AMB Botulinum toxin Injection Today G24.3 - Spasmodic torticollis Medications: New onabotulinumtoxinA 200 units IM ONCE 1 ea 0RF torticollis G24.3 - Spasmodic torticollis Coding Level of Care Code Est Pt Level 1 (87645) Diagnoses Spasmodic torticollis G24.3 CPT Codes Botox Injection - Botox 3: 34024 - Migraine ([id number])
[2024-08-09 13:48] VITALS: BP 112/78; PULSE 74; O2SAT 99
--- OUTSIDE RECORDS SUMMARY | 2024-08-09 15:30 | XMS_ITS | Data Portability ---
Author Organization [facility], , [facility] Address [address] [place] [address] Assessment No assessment recorded. Plan of Treatment [...] - Upper Endoscopy completed Triston Weeks MD [address] [place] [address], [phone], [facility] 01/12/2019 07:45:20 5 Can - Colonoscopy completed Thomas North MD [address] [place] [address], [phone], [facility] 02/05/2015 08:45:03 5 Can - EGD completed Thomas North MD [address] [place] [address], [phone], [facility] 12/18/2014 12:28:29 Imaging Results None recorded. Procedure Notes None recorded. Medical Equipment None Reported. Allergies Allergen ID Allergen Name Allergen Category Reaction Reaction Severity Criticality Documentation Date Start Date Code Code System Note Provider Name and Address Organization Details Recorded Time 957689 Substance with sulfonami de structure and antibacte rial mechanism of action (substanc e) medicatio n hives Not available Not available 01/06/2019 54106 800 SNOMED Noemy avila RN [facility], [facility] 9 16:11:46 331775 hydrocodo ne Not available tachycard ia vomiting Not available Not available Not available 01/06/2019 5489 RxNorm Noemy avila RN null, [facility] 9 16:12:29 131995 erythromy konstantin medicatio n nausea Not available Not available 01/06/2019 4053 RxNorm Noemy avila RN null, [facility] 9 16:12:50 Medications Name Sig Start Date [...] Available Not Availa ble Not Available Fluvirin 1519-9120 45 mcg (15 mcg x 3)/0.5 mL intramuscular suspension active Not Available Not Available N ot Available Flucelvax 0692-7533 (PF) 45 mcg (15 mcg x 3)/0.5 [...] SNOMED-CT Code Diagnosis ICD10 Code Diagnosis Note [id number] Thomas North MD [facility], [address] [address] 12/18/2014 10:07:13 12/18/2014 13:34:38 [id number] Thomas North MD [facility], [address] [address] 02/05/2015 07:01:43 02/05/2015 13:26:43 [id number] Triston Weeks MD [facility], [address] [address] 01/12/2019 06:42:02 01/12/2019 10:42:28 Health Concerns Section Related Observation LastModified by Organization Detai ls LastModified Time None Recorded Concern Status LastModified by Organization Details LastModified Time None Recorded Advance Directives Directive None Recorded Payers Insurance Date Sequence Insurance Name Policy Number Policy Robertson Covered Member ID Robertson Member ID Guarantor Name 01/12/2019 1 [facility] [id number] Ronny Zacarias [id number] Amanda Borja OBGyn Episode No OBEpisode recorded.
== END 2024-08-09 14:17 | disposition home or self-care (01) ==
LOC: HO.HSMS 13:33
PROVIDERS: PCP Pediatrics; Visit Provider Psychiatry & Neurology Neurology
DX: G24.3 Spasmodic torticollis (principal)

== ENCOUNTER → 2024-08-09 13:33 | Outpatient (BNVA) | payer BC, SELFPAY | PROVIDERS: PCP Pediatrics; Visit Provider Psychiatry & Neurology Neurology | DX: G24.3 Spasmodic torticollis (principal) | CPT/HCPCS: 64616; 99211; J0585 ==

== ENCOUNTER 2024-11-15 13:25 | Outpatient (AMB) | payer BC, SELFPAY ==
--- NOTE | 2024-11-15 13:28 | A.OFFVIS_ITS ---
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 by: Self / Same As Patient Allergies Sulfa (Sulfonamide Antibiotics) Allergy (Intermediate, Verified 11/15/24 13:28) Rash sulfite Allergy (Mild, Verified 11/15/24 13:28) Vomiting Medication List - Last Reconciled 11/15/24 by Macey Robison MD baclofen 5 - 10 mg (1 - 2 x 5 mg) PO BEDTIME PRN 30 days bupropion HCl SR (Wellbutrin SR) 100 mg PO DAILY cholecalciferol (vitamin D3) 25 mcg PO DAILY clonazepam 0.5 mg PO BID PRN esomeprazole magnesium (Nexium) 20 mg PO DAILY magnesium 50mg po QHS orally; magnesium 150 mg PO mecobalamin (vitamin B12) 1,000 mcg PO DAILY onabotulinumtoxinA (Botox) 100 units IM ONCE 12 weeks rizatriptan 5 - 10 mg (0.5 - 1 x 10 mg) PO Q2H PRN 21 days sucralfate 1 g PO BID HPI Comments Details: 59y/o female comes for treatment of her cervical dystonia ? Side effects including spread of toxin effect, dysphagia, breathing difficulties , bronchitis etc was discussed in detail and the patient agreed to the procedure.An informed consent was obtained ??? Botulinum toxin type A 200units X 1 -was diluted with 4 cc of normal saline at a concentration of 25 units in 0.5cc saline. Lot number [id number] expiration 12/2026 ??? Muscles injected Right splenius 50 units ??? left Splenius - 25units each ??? olaf levator 25units each right semispinalis 25 units Left semipinalis 10 units Olaf trapezius 15 units Right pterygoid 15 units Olaf occipitalis 15 units each ? Total used 200 units Discarded 0 units PFSH Family History Father HTN (hypertension) Stroke Sister Diabetes Mother Diverticulitis Social History Alcohol intake: never Patient Tobacco Use Status: Never used Tobacco Physical Exam Vital Signs: Last Vital Signs Pulse 83 11/15/24 13:29 BP 98/60 11/15/24 13:29 Pulse Ox 98 11/15/24 13:29 Oxygen Delivery Method Room Air 11/15/24 13:29 BMI result Body Mass Index 22.7 Const General: cooperative and no acute distress Orientation/consciousness: patient oriented x3 Neuro Other: Mild lower facial asymmetry- ? Left masseter region hypertrophy Right spasmodic torticollis. Marked bilateral posterior paraspinal muscle tightness and tenderness. Bilateral, R > L, sternocleidomastoid mastoid muscle tightness and tenderness General: patient oriented x3 Cognition (Neuro): normal cognition Office Procedures Botulinum toxin Injection 54468 - Dystonia Procedure code (CPT) selection complete Office Meds onabotulinumtoxinA 200 unit solution for injection Performing Provider: Macey Robison MD Performing Location: [facility] [place] Administered by: Macey Robison MD on 11/15/24 14:14 Dose Route Admin Location Dispensed Lot Number Expiration Date [facility] Administrative Clerk 200 unit IM 200 units [id number] ALLERGAN /BOTOX Total Dispensed Waste 200 units 0 % Assessment & Plan Assessment & Plan (1) Spasmodic torticollis: Code(s): G24.3 - Spasmodic torticollis Category: Medical Plan Patient tolerated the procedure well SHe will call with any side effects suggested neck extension exercises Magnesium increase dose to 300units Orders: Orders AMB Botulinum toxin Injection Today G24.3 - Spasmodic torticollis Coding Level of Care Code Est Pt Level 1 (58643) Diagnoses Spasmodic torticollis G24.3 CPT Codes Botox Injection - Botox 4: 99858 - Dystonia ([id number])
[2024-11-15 13:29] VITALS: BP 98/60; PULSE 83; O2SAT 98; BMI 22.7
== END 2024-11-15 14:02 | disposition home or self-care (01) ==
LOC: HO.HSMS 13:25
PROVIDERS: PCP Pediatrics; Visit Provider Psychiatry & Neurology Neurology
DX: G24.3 Spasmodic torticollis (principal)
CPT/HCPCS: 64616

== ENCOUNTER → 2024-11-15 13:25 | Outpatient (BNVA) | payer BC, SELFPAY | PROVIDERS: PCP Pediatrics; Visit Provider Psychiatry & Neurology Neurology | DX: G24.3 Spasmodic torticollis (principal) | CPT/HCPCS: 64616; 99211; J0585 ==

== ENCOUNTER 2024-12-22 12:47 | Outpatient (AMB) | payer BC, SELFPAY ==
[2024-12-22 12:49] VITALS: BP 106/68; PULSE 83; O2SAT 99; BMI 22.9
--- NOTE | 2024-12-22 12:49 | A.OFFVIS_ITS ---
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: No Accompanied by: Self / Same As Patient Allergies Sulfa (Sulfonamide Antibiotics) Allergy (Intermediate, Verified 12/22/24 12:49) Rash sulfite Allergy (Mild, Verified 12/22/24 12:49) Vomiting Medication List - Last Reconciled 12/22/24 by FANY Rae baclofen 5 - 10 mg (1 - 2 x 5 mg) PO BEDTIME PRN 30 days bupropion HCl SR (Wellbutrin SR) 100 mg PO DAILY cholecalciferol (vitamin D3) 25 mcg PO DAILY clonazepam 0.5 mg PO BID PRN esomeprazole magnesium (Nexium) 20 mg PO DAILY magnesium 150 mg PO mecobalamin (vitamin B12) 1,000 mcg PO DAILY onabotulinumtoxinA (Botox) 100 units IM ONCE 12 weeks rizatriptan 5 - 10 mg (0.5 - 1 x 10 mg) PO Q2H PRN 21 days sucralfate 1 g PO BID HPI Comments Details: 59-yr-old female presents for f/u visit of migraine and spasmodic torticollis Pt reports that she had a second opinion for chronic GERD management at [facility]. They advised her to undergo f/u GI work-up, Esophageal Manometry and 24-Hour pH Monitoring. They suggested that her chronic Prevacid use may be contributing to her headaches, as they felt the PPI could be blocking absorption of essential vitamins and minerals. She notes that on recent blood work, it has been shown that she is deficient in certain vitamin/minerals. She does take slow acting iron supplement. However, she typically has not tolerated a 1 a day multivitamin. The patient reports that her botox treatments continue to reduce the severity of her chronic lifelong spasmodic torticollis symptoms. However, when Botox is also injected into the bilateral occipital muscles, she has less migraine headache since well. She also notes, that after a migraine attack is treated, the ipsilateral neck tightness subsides, and then she will have more pronounced contralateral neck tightness. Pt reports she continues to wake up 20 days per month with a headache, and has 7 more severe migraine attacks lasting 1-3 days per attack (approx 10 more severe migraine days per month). 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 She continues to have intermittent episodes shooting pain from neck up through occipital region and over the head triggered by either right or left lateral movement. She previously did see pain management however she did not feel that this was a good fit for her. Rizatriptan 5mg does help the migraine headache and nausea. She has started using an ETNS device, Head-A-Term, which helps take the edge off as her rizatriptan begins to work. She has also started wearing a EmeTerm? Smart Anti-nausea Wristwatch, which she feels is helpful at times to reduce her migraine associated nausea. She continues to do jaw/cervical/shoulder stretches, exercises, home massages. She continues to have therapeutic massage. She is compliant with OTC Mag glycinate, now taking 200mg per day. Baseline headache characteristics: Severe, Unilateral (right or left sided) headache and cervical paraspinal deep dull severe pain, a/w ipsilateral jaw pain, occass ipsilateral facial spasm/tension. this can then move to the alternate side a/w photophobia, nausea, dry heaves. PFSH Family History Father HTN (hypertension) Stroke Sister Diabetes Mother Diverticulitis Social History Alcohol intake: never Patient Tobacco Use Status: Never used Tobacco Physical Exam Vital Signs: Last Vital Signs Pulse 83 12/22/24 12:49 BP 106/68 12/22/24 12:49 Pulse Ox 99 12/22/24 12:49 Oxygen Delivery Method Room Air 12/22/24 12:49 BMI result Body Mass Index 22.9 Const General: cooperative and no acute distress Orientation/consciousness: patient oriented x3 Neuro Other: Less appreciable mild lower facial asymmetry- ? Left masseter region hypertrophy Right spasmodic torticollis- less noticeable today General: patient oriented x3 and moves all extremities Cognition (Neuro): normal cognition Gait exam (Neuro): Normal gait present Motor exam (neuro): 5/5 motor strength present throughout Assessment & Plan Assessment & Plan (1) Chronic migraine without aura: Code(s): G43.709 - Chronic migraine without aura, not intractable, without status migrainosus Category: Medical Qualifiers: Intractability: not intractable Status migrainosus presence: without status migrainosus Qualified Code(s): G43.709 - Chronic migraine without aura, not intractable, without status migrainosus (2) Spasmodic torticollis: Code(s): G24.3 - Spasmodic torticollis Category: Medical (3) Bilateral occipital neuralgia: Code(s): M54.81 - Occipital neuralgia Category: Medical Plan For cervical dystonia s/s: Increase Botox up to 300 units IM q 12 weeks for spasmodic torticollis- as requested by Dr. Robison at her last Botox session. Continue Baclofen 5-10mg qhs prn. Continue Magnesium glycinate 200 mg daily at bedtime, however could increase this up to 250 mg twice a day. Continue massage, stretching, chin support. For occipital neuralgia s/s: Pt did have pain management eval for trigger point and ON block injections- however the provider was not a good fit for her. If symptoms worsen, consider referring elsewhere. Prevention treatment: Consider starting * Riboflavin 400 mg daily in the morning * Co Q10 400 mg daily in the morning with food. Consider increasing magnesium glycinate to 250 mg twice a day, as above. Future considerations: Amitriptyline, topiramate, or propranolol For acute chronic migraine treatment: Continue eTNS, Head-A-Term, and Anti-nausea smart watch by emиван. Continue Rizatriptan 10mg tab- 1/2 - 1 tab at onset of headache, MR x's 1 (max 2 tabs per day), may take w/ Tylenol 650-1000mg prn. Migraine tx contraindications- Sumatriptan d/t pt has a sulfa and sulfite allergy. f/u in 6 months or sooner prn. Coding Level of Care Code Est Pt Level 4 (92905) Diagnoses Chronic migraine without aura without status migrainosus, not intractable G43.709 Intractability: not intractable Status migrainosus presence: without status migrainosus Spasmodic torticollis G24.3 Bilateral occipital neuralgia M54.81
--- OUTSIDE RECORDS SUMMARY | 2024-12-22 15:40 | XMS_ITS | Encounter Summary ---
Author Organization [facility] Address [address] [place] [address] Phone Care Team Providers Care Embedded Firmware Developer Name Role Phone Pricila Castellanos MD Unavailable [phone] Ronny Lo MD Unavailable [phone] Ronny Lo MD Primary Care Provider [phone] Ronny Lo MD Unavailable [phone] Encounter Details Date Type Department Care Team (Late st Contact Info) Description 06/26/2022 Procedure Pass [facility], [address] [address] Social History Tobacco Use Types Packs/Day Years Used Date Smoking Tobacco: Never Smokeless Tobacco: Never Alcohol Use Standard Drinks/Week Comments No 0 (1 standard drink = 0.6 oz pur e alcohol) Education Answer Date Recorded Are you interested in more education? Not on ramana e 06/20/2022 Are you concerned about learning? 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[employer] Not on file Not on ramana e Not on file documented as of this encounter Plan of Treatment Upcoming Encounters Date Type Department Care Team (Late st Contact Info) Description 01/24/2025 1:45 PM EST Office Visit [facility] 10 [place] [address] Unknown, Unknown, Caprice Machuca PA-C [address] [address] 03/20/2025 3:40 PM EST Office Visit [facility] 45 [facility]2 [place] [address] Christian Jackson MD, PhD [address] [place] [id number] [email or web address] Scheduled Procedures Name Priority Associated Diagnoses Date/Ti me ESOPHAGEAL FUNCTION TEST PH WITH IMPEDANCE CATHETER Gastroesophageal reflux disease, unspecified whether esophagitis present documented as of this encounter Visit Diagnoses Not on filedocumented in this encounter Additional Health Concerns Assessment Noted Time PHQ-2 Depression Total Score: 0 12/25/19 18 11:48 AM EDT documented as of this encounter Care Teams Embedded Firmware Developer Relationship Specialty Start Date End Date Ronny Lo MD [address] [place] [address], [address] [place] [address] PCP - General Internal Medicine 06/21/18 Pricila Castellanos MD [address] [place] [address], [address] [place] [address] [email or web address] Historical LMR Provider 12/14/16 Ronny Lo MD [address] [place] [address], [address] [place] [address] Historical LMR Provider 12/14/16 Ronny Lo MD [address] [place] [address], [address] [place] [address] [email or web address] Insurance Assigned Provider 06/26/18 06/28/22 documented as of this encounter Additional Source Comments The information contained in this document represents components of the legal health record. It is not the complete legal health record.[facility]
--- OUTSIDE RECORDS SUMMARY | 2024-12-22 15:40 | XMS_ITS | Encounter Summary ---
Author Organization [facility] Address [address] [facility] [address] [place] [address] Phone Care Team Providers Care Cigarette Examiner Name Role Phone Pricila Castellanos MD Unavailable [phone] Ronny Lo MD Unavailable [phone] Ronny Lo MD Primary Care Provider [phone] Ronny Lo MD Unavailable [phone] Encounter Details Date Type Department Care Team (Latest Contact Info) Description 06/26/2022 Transcribe Orders Virtual Department 30 [place] [address] Ronny Lo MD 22 [facility], [address] [place] [address] [email or web address] Breast screening (Primary Dx) Social History Tobacco Use Types Packs/Day Years [...] 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 [place] [address] Christian Jackson MD, PhD [address] [place] [address] [email or web address] Scheduled Procedures Name Priority Associated Diagnoses Date/Ti me ESOPHAGEAL FUNCTION TEST PH WITH IMPEDANCE CATHETER Gastroesophageal reflux disease, unspecified whether esophagitis present documented as of this encounter Results * BI MAMMOGRAM SCREENING WITH TOMOSYNTHESIS WITH CAD (BILATERAL) (08/08/2022 11:18 AM EDT) Anatomical Region Laterality Modality Breast Left, Breast Right, Breast Bilateral Bila teral Mammography 08/08/2022 3:10 PM EDT Impressions 08/08/2022 3:12 PM EDT No findings suspicious for malignancy are identified. In the absence of a worrisome palpable abnormality, annual screening mammography is recommended. BI-RADS CATEGORY: 1 - Negative. DENSITY: The breast tissue is heterogeneously dense, which could obscure a lesion on mammography. Narrative 08/08/2022 3:12 PM EDT AVAILABLE COMPARISON: 09/07/2020 through 09/12/2006 Bilateral 3-D tomosynthesis with 2-D reconstructions in the CC and MLO projection. Computer-aided detection system was utilized. No new mass, asymmetry, architectural distortion or suspicious calcifications have become apparent in either breast. Procedure Note Corey Stevenson MD - 08/08/2022 AVAILABLE COMPARISON: 09/07/2020 through 09/12/2006 Bilateral 3-D tomosynthesis with 2-D reconstructions in the CC and MLOprojection. Computer-aided detection system was utilized. No new mass, asymmetry, architectural distortion or suspiciouscalcifications have become apparent in either breast. IMPRESSION: No findings suspicious for malignancy are identified. In the absence of aworrisome palpable abnormality, annual screening mammography isrecommended. BI-RADS CATEGORY: 1 - Negative. DENSITY: The breast tissue is heterogeneously dense, which could obscurea lesion on mammography. Ronny Lo MD IMG MG EXAMS Final Result documented in this encounter Visit Diagnoses Diagnosis Breast screening- Primary Breast screening, unspecified Breast screening Breast screening, unspecified documented in this encounter Additional Health Concerns Assessment Noted Time PHQ-2 Depression Total Score: 0 12/25/19 18 11:48 AM EDT documented as of this encounter Care Teams Cigarette Examiner Relationship Specialty Start Date End Date Ronny Lo MD [address] [place] [address], [address] [place] [address] PCP - General Internal Medicine 06/21/18 Pricila Castellanos MD [address] [place] [address], [address] [place] [address] Historical LMR Provider 12/14/16 Ronny Lo MD [address] [place] [address], [address] [place] [address] [email or web address] Historical LMR Provider 12/14/16 Ronny Lo MD [address] [place] [address], [address] [place] [address] [email or web address] Insurance Assigned Provider 06/26/18 06/28/22 documented as of this encounter Additional Source Comments The information contained in this document represents components of the legal health record. It is not the complete legal health record.[facility]
--- OUTSIDE RECORDS SUMMARY | 2024-12-22 15:40 | XMS_ITS | Encounter Summary ---
Author Organization [facility] Address [address] [facility] [address] [place] [address] Phone Care Team Providers Care Top And Trim Worker Name Role Phone Pricila Castellanos MD Unavailable [phone] Ronny Lo MD Unavailable [phone] Ronny Lo MD Primary Care Provider [phone] Ronny Lo MD Unavailable [phone] Encounter Details Date Type Department Care Team (Late Contact Info) Description 12/13/2021 Procedure Pass [facility] Admitting Dept Virtual Department [address] [place] [address] Social History Tobacco Use Types Packs/Day Years Used Date Smoking Tobacco: Never Smokeless Tobacco: Never Alcohol Use Standard Drinks/Week Comments No 0 (1 standard drink = 0.6 oz pur e alcohol) Comments No Sex and Gender Information Value [...] Encounters Date Type Department Care Team (Late Contact Info) Description 01/24/2025 1:45 PM EST Office Visit [facility] 10 [place] [address] Unknown, Unknown, Caprice Machuca PA-C 10 [facility] 2 [place] [address] [email or web address] 03/20/2025 3:40 PM EST Office Visit [facility] 45 [facility]2 [place] [address] Christian Jackson MD, PhD [address] [place] [address] [email or web address] Scheduled Procedures Name Priority Associated Diagnoses Date/Ti me ESOPHAGEAL FUNCTION TEST PH WITH IMPEDANCE CATHETER Gastroesophageal reflux disease, unspecified whether esophagitis present documented as of this encounter Visit Diagnoses Not on filedocumented in this encounter Additional Health Concerns Assessment Noted Time PHQ-2 Depression Total Score: 0 12/25/19 18 11:48 AM EDT documented as of this encounter Care Teams Top And Trim Worker Relationship Specialty Start Date End Date Ronny Lo MD [address] [place] [address], [address] [place] [address] PCP - General Internal Medicine 06/21/18 Pricila Castellanos MD [address] [place] [address], [address] [place] [address] Historical LMR Provider 12/14/16 Ronny Lo MD [address] [place] [address], [address] [place] [address] Historical LMR Provider 12/14/16 Ronny Lo MD [address] [place] [address], [address] [place] [address] [email or web address] Insurance Assigned Provider 06/26/18 06/28/22 documented as of this encounter Additional Source Comments The information contained in this document represents components of the legal health record. It is not the complete legal health record.[facility]
--- OUTSIDE RECORDS SUMMARY | 2024-12-22 15:40 | XMS_ITS | Encounter Summary ---
Author Organization [facility] Address [address] [place] [address] Phone Care Team Providers Care Parking Attendant Name Role Phone Pricila Castellanos MD Unavailable [phone] Ronny Lo MD Unavailable Ronny Lo MD Primary Care Provider [phone] Encounter Details Date Type Department Care Team (Late st Contact Info) Description 05/16/2024 Procedure Pass [facility], [address] [id number] Social History Tobacco Use Types Packs/Day Years Used Date Smoking Tobacco: Never Smokeless Tobacco: Never Alcohol Use Standard Drinks/Week Comments No 0 (1 standard drink = 0.6 oz pur e alcohol) Child or Family Care Answer Date Record ed Do you have problems with on e of the following making it difficult for you to work, study, or receive health care? No 10/08/2023 Education Answer Date Recorded Are you interested in help w ith more adult education (for example, completing high school, GED, job training, learning the Hebrew language, technical skills, or developing parenting skills)? No 10/08/2023 Are you concerned about learning? Not on file 10/08/2023 No 10/08/2023 Yes 10/08/2023 Food Answer Date Recorded Within the past 6 months we worried whether our food would run out before we got money to buy more. Never True 10/08/2023 Within the past 6 months the food we bought just didn't last and we didn't have enough money to get more. Never True Residential Stability Answer Date Recor ded What is your housing situation today? I have negro wall 10/08/2023 How many times have you move d in the past 12 months? Zero (I did not move) 10/08/2023 Paying for Meds Answer Date Recorded Do you have trouble paying for medicines? No 10/08/2023 Paying Utility Bills Answer Date Record ed Do you have trouble paying your heating or elect ricity bill? No 10/08/2023 Transportation Answer Date Recorded Has the lack of transportati on kept you from medical appointments or from getting medications? No 10/08/2023 Digital Access Answer Date Recorded No 10/08/2023 Yes 10/08/2023 Do you have reliable internet access at home? Ye s 10/08/2023 Do you have a device (e.g., phone, tablet, computer) with a working camera? Yes 10/08/2023 Intimate Partner Violence Answer Date R ecorded Denied Basic Needs Not on file 10/08/2023 In the past 12 months have y ou been in a relationship with a person who hurts, threatens, or tries to control you? No 10/08/2023 Worried food would run out Not on file 10/07 In the past 12 months have y ou been in a relationship with a person who hurts, threatens, or tries to control you? 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 Not on ramana e Not on file documented as of this encounter Plan of Treatment Upcoming Encounters Date Type Department Care Team (Late st Contact Info) Description 01/24/2025 1:45 PM EST Office Visit [facility] [address] [place] [address] Unknown, Unknown, Caprice Machuca PA-C 10 [facility] 2 [place] [address] 03/20/2025 3:40 PM EST Office Visit [facility] 45 [facility]2-2 [place] [address] Christian Jackson MD, PhD [address] [place] [phone] [email or web address] Scheduled Procedures Name Priority Associated Diagnoses Date/Ti me ESOPHAGEAL FUNCTION TEST PH WITH IMPEDANCE CATHETER Gastroesophageal reflux disease, unspecified whether esophagitis present documented as of this encounter Visit Diagnoses Not on filedocumented in this encounter Additional Health Concerns Assessment Noted Time PHQ-2 Depression Total Score: 0 10/25/19 25 2:10 PM EDT documented as of this encounter Care Teams Parking Attendant Relationship Specialty Start Date End Date Ronny Lo MD [address] [place] [address], [address] [place] [address] PCP - General Internal Medicine 06/21/18 Pircila Castellanos MD [address] [place] [address], [address] [place] [address] Historical LMR Provider 12/14/16 Ronny Lo MD [address] [place] [address], [address] [place] [address] Historical LMR Provider 12/14/16 documented as of this encounter Additional Source Comments The information contained in this document represents components of the legal health record. It is not the complete legal health record.[facility]
--- OUTSIDE RECORDS SUMMARY | 2024-12-22 15:41 | XMS_ITS | Clinical Summary ---
Author Organization [facility] Address [address] [address] Phone Care Team Providers Care Draftsperson Name Role Phone Pricila Castellanos MD Unavailable [phone] Bindu Lo MD Unavailable Bindu Lo MD Primary Care Provider [phone] Allergies Active Allergy Reactions Criticality Noted Date Comments Erythromycin Nausea Only 01/07/2017 Nausea, vomiting. Hydrocodone Palpitations,Vomitin g Low 10/31/2024 Hydrocodone-Acetaminoph en 01/07/2017 Vomiting, heart racing Sulfa (Sulfonamide Antibiotics) Hives 01/07/2017 Medications esomeprazole (NEXIUM) 40 MG capsule as directed 0 Active sodium chloride (OCEAN) 0.65 % nasal spray 2 drops in each nostril as needed Active famotidine (PEPCID) 20 MG tablet 2 Active cholecalcifero l, vitamin D3, (VITAMIN D3) 25 mcg (1,000 unit) capsule Take 1,000 Units by mouth every other day. Active cyanocobalamin , vitamin B-12, 1000 MCG tablet Take 1,000 mcg by mouth every other day. Active cyclobenzaprin e (FLEXERIL) 5 MG tabletIndicati ons:Cervicogen ic headache Take 1 tablet (5 mg total) by mouth 3 (three) times a day as needed (spasm). 30 tablet 3 Active Additional Information Patient not taking.Reported on 11/09/2024 rizatriptan (MAXALT) 10 MG tablet Take 10 mg by mouth as needed. 4 Active buPROPion (WELLBUTRIN) 75 MG immediate release tablet Take 75 mg by mouth 2 (two) times a day. 1/4 in the AM 1/4 in the PM 4 Active baclofen (LIORESAL) 5 mg tablet Take 5 mg by mouth 3 (three) times a day. 1/2 Tab at night as needed Active magnesium glycinate 100 mg magnesium capsule 5 Active prochlorperazi ne (COMPAZINE) 10 MG tablet Take 10 mg by mouth as needed. 1/4 of tab Active clonazePAM (KLONOPIN) 0.5 MG tablet Take 1 tablet (0.5 mg total) by mouth 2 (two) times a day as needed for anxiety. 5 Active sucralfate (CARAFATE) 1 gram tablet Take 1 tablet (1 g total) by mouth nightly at bedtime. 30 tablet 2 5 01/12/20 25 Active SUCRALFATE ORALIndication s:1 pill before each meal Take 1 g by mouth 4 (four) times a day. Indications: 1 pill before each meal 12/13/19 25 Discontin ued(Dupli sylvia order) Active Problems Problem Noted Date Diagnosed Date Cervicogenic headache 09/18/2022 Assessment & Plan (10/17/2023 11:35 AM EDT): Some improvement with Botox. Continue to monitor. Limit use of small screens which can certainly impact muscle strain.. Assessment & Plan (11/06/2022 3:53 PM EDT): Agree with Dr. Lo' recommendations. Would not suggest HRT. Laurita plans to pursue Botox with neuro. Assessment & Plan (09/19/2022 9:09 AM EDT): May use muscle relaxer prn for severe headache. Consider acupuncture, or botox with neurology. GERD (gastroesophageal reflux disease) 8 Assessment & Plan (11/01/2024 8:44 PM EDT): Tolerating sucralfate, famotidine, with goal to taper off of PPI as it may be contributing to hypomagnesemia and increased migraine. Assessment & Plan (10/17/2023 11:34 AM EDT): Consultation reinitiated for evaluation in [place] for her ongoing upper abdominal symptoms associated with GERD. She would like to be considered for a candidate for Stretta procedure for refractory GERD. Assessment & Plan (09/19/2022 9:11 AM EDT): Patient to revisit plan a year ago for procedural treatment to manage her GERD symptoms. She was interested in considering Stretta procedure. Referral placed to [facility] GI service Dr. Zuniga for further evaluation and management. Assessment & Plan (09/17/2021 9:49 PM EDT): GI followup for severe symptoms. Referral to [facility] planned for procedural treatment consideration. In limited research regarding the procedure in question, it may be that her chances of improvement without the need for medication is best with fundoplication. Resolved Problems Problem Noted Date Diagnosed Date Resolved Date Vulvar burning 05/12/2017 06/30/2018 Assessment & Plan (05/12/2017 10:21 AM EDT): Cannot confirm yeast; may be contact dermatitis, Rx empirically for yeast and avoid irritants Postmenopausal bleeding 05/12/2017 05/09/2018 Assessment & Plan (06/23/2017 8:34 AM EDT): Based on ultrasound findings and exam today, bleeding is likely external thus recommend trial of sitz baths/coconut oil as barrier to decrease inflammation/irritation. Plan follow up in 3-4 weeks to assess improvement. If Laurita still feels like area is sensitive, would recommend trial of Estrace externally. Assessment & Plan (05/12/2017 10:22 AM EDT): Plan for SHG; will not use miso as she had bad experience was used to induce labor, caused bleeding Acute pharyngitis due to oth er specified organisms 01/23/2017 12/24/2017 Encounters Date Type Department Care Team Description 12/12/2024 1:40 PM EDT Office Visit [facility] [address] [facility] [place] [address] González Reynoso MD, PhD Gastroesophageal reflux disease, unspecified whether esophagitis present (Primary Dx) 12/01/2024 Telephone [facility] [address] [place] [address] Caprice Murray PA-C Schedule recall Colonoscopy 11/30/2024 3:14 PM EDT - 11/30/2024 11:59 PM EDT Hospital Encounter [address] [address] Bindu Lo MD Discharge Disposition: Home or Self Care 11/09/2024 3:45 PM EDT - 11/09/2024 4:15 PM EDT Surgery [facility] Endoscopy Department [address] [place] [id number] González Reynoso MD, PhD ESOPHAGOGASTRODUODENOSCOPY 11/09/2024 2:21 PM EDT - 11/09/2024 6:10 PM EDT Hospital Encounter [facility] Endoscopy Department [address] [place] [id number] González Reynoso MD, PhD Discharge Disposition: Home or Self Care 11/09/2024 Procedure Pass [facility] Endoscopy Department [address] [place] [id number] 10/31/2024 1:45 PM EDT Office Visit [address] [place] [address] Bindu Lo MD Annual physical exam (Primary Dx); Gastroesophageal reflux disease with esophagitis without hemorrhage; Screening for colon cancer 10/10/[address] [place] [address] Bindu Lo MD Referral 05/16/2024 Procedure Pass [address] [address] from Last 3 Months Immunizations Immunization Administration Dates Next Due COVID-19 (Pre-12/15) Pfizer Vaccine, mRNA, PF 06/15/2020 INFLUENZA, SPLIT VIRUS, TRIVALENT PF 11/04/2016, 11/22/2009 INFLUENZA, SPLIT VIRUS, TRIV ALENT W/ PRESERVATIVE IM 12/24/2015,12/06/2014,12/26/2013,2012,11/28/2011 Influenza Quadrivalent MDCK Preservative Free IM 01/03/2019 Influenza Quadrivalent Prese rvative Free IM 12/22/2022,12/01/2020,12/17/2019 Influenza Recombinant Uriel valent Preservative Free IM 12/14/2021 Influenza Trivalent MDCK Pre servative Free IM 11/14/2023 Influenza, Unspecified Formulation 11/19/2017 Td (adult),2 Lf Tetanus Toxo id, PF, Adsorbed 09/18/2022 Tdap 11/22/2009 Family History Medical History Relation Comments Hypertension Brother 1 Diverticulitis Brother 3 Cancer Father Prostate cancer, melanoma Hypertension Father Stroke Father Stroke Maternal Grandmother CV disease Mother Stroke Paternal Uncle Diabetes Sister 1 Diverticulitis Sister 1 Diabetes mellitus Sister 2 Breast cancer Neg Hx Relation Status Comments Brother 1 Other Brother 2 Alive Brother 3 Alive Father Maternal Grandmother Mother Paternal Uncle Sister 1 Alive Sister 2 Alive Social History Tobacco Use Types Packs/Day Years Used Date Smoking Tobacco: Never Smokeless Tobacco: Never Tobacco Cessation:Counseling Given: Not Answered Alcohol Use Standard Drinks/Week Comments No 0 (1 standard drink = 0.6 oz pur e alcohol) Child or Family Care Answer Date Record ed Do you have problems with on e of the following making it difficult for you to work, study, or receive health care? No 10/24/2024 Education Answer Date Recorded Are you interested in help w ith more adult education (for example, completing high school, GED, job training, learning the Vincentian language, technical skills, or developing parenting skills)? No 10/24/2024 Are you concerned about learning? Not on file 10/24/2024 No 10/24/2024 Yes 10/24/2024 Food Answer Date Recorded Within the past 6 months we worried whether our food would run out before we got money to buy more. Never True 10/24/2024 Within the past 6 months the food we bought just didn't last and we didn't have enough money to get more. Never True Residential Stability Answer Date Recor ded What is your housing situation today? I have negro wall 10/24/2024 How many times have you move d in the past 12 months? Zero (I did not move) 10/24/2024 Paying for Meds Answer Date Recorded Do you have trouble paying for medicines? No 10/24/2024 Paying Utility Bills Answer Date Record ed Do you have trouble paying your heating or elect ricity bill? No 10/24/2024 Transportation Answer Date Recorded Has the lack of transportati on kept you from medical appointments or from getting medications? No 10/24/2024 Digital Access Answer Date Recorded No 10/24/2024 Yes 10/24/2024 Do you have reliable internet access at home? Ye s 10/24/2024 Do you have a device (e.g., phone, tablet, computer) with a working camera? Yes 10/24/2024 Intimate Partner Violence Answer Date R ecorded Are you denied basic needs s uch as food, clothing, or medical care? No 11/09/2024 In the past 12 months have y ou been in a relationship with a person who hurts, threatens, or tries to control you? No 11/09/2024 Are you denied basic needs s uch as food, clothing, or medical care? No 11/09/2024 In the past 12 months have y ou been in a relationship with a person who hurts, threatens, or tries to control you? 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 Not on file Not on ramana e Not on file Last Filed Vital Signs Vital Sign Reading Time Taken Comments Blood Pressure 128/58 12/12/2024 1:43 PM EDT Pulse 89 12/12/2024 1:43 PM EDT Temperature 36.2 C (97.1 F) 11/09/2024 5:35 PM EDT Respiratory Rate 22 11/09/2024 5:35 PM EDT Oxygen Saturation 98% 12/12/2024 1:43 PM EDT Inhaled Oxygen Concentration 54% 11/09/2024 5 :30 PM EDT Weight 60.2 kg (132 lb 11.2 oz) 12/12/2024 1:43 PM EDT Height 161.3 cm (5' 3.5 ) 12/12/2024 1:43 PM EDT Body Mass Index 23.14 12/12/2024 1:43 PM EDT Plan of Treatment Upcoming Encounters Date Type Department Care Team (Late st Contact Info) Description 01/24/2025 1:45 PM EST Office Visit [facility] [address] [place] [address] Unknown, Unknown, Caprice Machuca PA-C [address] [address] [email or web address] 03/20/2025 3:40 PM EST Office Visit [facility] [address] [facility] [place] [address] González Reynoso MD, PhD [address] [place] [phone] [email or web address] Scheduled Procedures Name Priority Associated Diagnoses Date/Ti me ESOPHAGEAL FUNCTION TEST PH WITH IMPEDANCE CATHETER Gastroesophageal reflux disease, unspecified whether esophagitis present Health Maintenance Due Date Last Done Comments HEPATITIS C SCREENING 1984 HIV ONE-TIME SCREENING (18-65 YEARS) 1984 COLOGUARD 05/02/2011 FOBT 05/02/2011 SIGMOIDOSCOPY 05/02/2011 VIRTUAL COLONOSCOPY 05/02/2011 PNEUMOCOCCAL VACCINES (50+ years) (1 of 1 - PCV) 2016 ZOSTER VACCINES (1 of 2) 2016 FIT TEST 05/28/2022 05/28/2021 COLONOSCOPY 02/05/2025 02/29/2024 COLORECTAL CANCER SCREENING 02/05/2025 DEPRESSION SCREENING 12/08/2025 12/08/2024 MAMMOGRAM 11/30/2026 11/30/2024, 07/24, 08/08/2022, Additional history exists PAP SMEAR 07/23/2027 07/22/2024, 06/24, 07/13/2018 LIPID PANEL 10/14/2028 10/15/2023, 11/0 02/2017, 12/24/2017 Adult Td,Tdap Booster 09/18/2032 09/18/2022, 010 RSV VACCINE (1 - 1-dose 75+ series) 2041 COVID-19 VACCINE Completed 11/16/2024, , 12/11/2022, Additional history exists INFLUENZA VACCINE Completed 11/16/2024, , 12/22/2022, Additional history exists SMOKING STATUS SCREENING (Once After 26 Yrs) Completed 11/30/2024 HEPATITIS A VACCINES Aged Out No long er eligible based on patient's age to complete this topic HIB VACCINES Aged Out No longer eligi ble based on patient's age to complete this topic MENINGOCOCCAL VACCINES (ACWY) Aged Out No longer eligible based on patient's age to complete this topic MENINGOCOCCAL VACCINES (B) Aged Out N o longer eligible based on patient's age to complete this topic Medical Devices Implanted Type Area Nutrition Teacher Device Identifier Shelf Expiration Date Model / Serial / Lot Clip Hemostasis 360deg 235cm Resolution 360 Latex Free 2.8mm Channel Bx/20ea - [id number] Implanted:Qty: 1 on 11/09/2024 by González Reynoso MD, PhD at [facility] Stomach [employer] [id number] 08/19/2027 [id number] / / [id number] Procedures Procedure Name Priority Date/Time Associated Diagnosis Comments BI MAMMOGRAM SCREENING WITH TOMOSYNTHESIS WITH CAD (BILATERAL) Routine 11/30/2024 3:29 PM EDT Visit for screening mammogram ESOPHAGOGASTRODUODENOSCOPY 11/09 5:00 PM EDT Gastroesophage al reflux disease, unspecified whether esophagitis present Special Needs 11/08 pt confirmed. ML7/05/17 [place] - instructions sent to [facility] af ENDOSCOPY PROCEDURE 11/09/2024 4:55 PM EDT ANATOMIC PATHOLOGY Routine 11/09/2024 12:00 AM EDT PAP TEST Routine 07/22/2024 12:00 AM EDT HM COLONOSCOPY FOR RESULT ENTRY ONLY Routine 02/29/2024 LIPID PANEL Routine 10/15/2023 3:03 PM EDT Screening, lipid HC BLOOD OCCULT FECAL HGB DETER IA QUAL FECES 1-3 Routine 05/28/2021 1:58 PM EDT from Last 3 Months or Most Recently Relevant to Health Maintenance Results * BI MAMMOGRAM SCREENING WITH TOMOSYNTHESIS WITH CAD (BILATERAL) (11/30/2024 3:29 PM EDT) Anatomical Region Laterality Modality Breast Left, Breast Right, Breast Bilateral Bila teral Mammography 12/01/2024 11:0 5 AM EDT Impressions 12/01/2024 11:09 AM EDT No mammographic evidence of malignancy in either breast. Annual screening mammography is recommended. BI-RADS 1 NEGATIVE The patient will be notified of the results and recommendations. Narrative 12/01/2024 11:09 AM EDT BI MAMMOGRAM SCREENING WITH TOMOSYNTHESIS WITH CAD (BILATERAL) Additional patient information: Screening. COMPARISON: Comparison is made with relevant prior imaging. Breast composition: The breasts are heterogeneously dense, which may obscure small masses. FINDINGS: No abnormal masses, suspicious calcifications, or other significant findings are identified mammographically in either breast. Procedure Note Gabi Le MD - 12/01/2024 BI MAMMOGRAM SCREENING WITH TOMOSYNTHESIS WITH CAD (BILATERAL) Additional patient information: Screening. COMPARISON: Comparison is made with relevant prior imaging. Breast composition: The breasts are heterogeneously dense, which mayobscure small masses. FINDINGS: No abnormal masses, suspicious calcifications, or other significantfindings are identified mammographically in either breast. IMPRESSION: No mammographic evidence of malignancy in either breast. Annual screening mammography is recommended. BI-RADS 1 NEGATIVE The patient will be notified of the results and recommendations. Bindu Lo MD IMG MG EXAMS Final Result * ENDOSCOPY PROCEDURE (11/09/2024 4:55 PM EDT) 11/09/2024 4:55 PM EDT Narrative Transcriptions González Reynoso MD, PhD - 11/09/2024 4:55 PM EDT [facility] Gastroenterology Patient Name: Laurita Borja Procedure Date: 11/09/2024 4:55 PM Date of : 1965 Admit Type: Outpatient Age: 59 Room: 2 Gender: Female Note Status: Finalized Attending MD: GONZÁLEZ REYNOSO MD, [id number] Instrument Name: [id number] Procedure: Upper GI endoscopy Indications: Heartburn Providers: GONZÁLEZ REYNOSO MD, ANA M CANO RN Referring MD: Bindu Lo (Referring MD) Medicines: Midazolam 5 mg IV, Fentanyl 125 micrograms IV Complications: No immediate complications. Procedure: Pre-Anesthesia Assessment: - All questions were answered and informed consent was obtained. - ASA Grade Assessment: II - A patient with mild systemic disease. - Airway Examination: Mallampati Class II (the uvula but not tonsillar pillars visualized). After informed consent was obtained, the endoscope was passed under direct vision. Throughout the procedure, the patient's blood pressure, pulse, and oxygen saturations were monitored continuously. The Endoscope was introduced through the mouth, and advanced to the third part of duodenum. The upper GI endoscopy was accomplished without difficulty. The patient tolerated the procedure well. Findings: The examined esophagus was normal. Multiple 1-2 mm sessile polyps with no bleeding and no stigmata of recent bleeding were found in the stomach, two biopsies were taken from the larger polyps. Two 2-3 sessile polyps with no bleeding and no stigmata of recent bleeding were found in the stomach. These polyps were removed with a cold snare. Resection and retrieval were complete. One hemoclip was applied to achieve hemostasis with success. Random gastric biopsies were taken. The examined duodenum was normal. Impression: - Normal esophagus. - Multiple gastric polyps, biopsied, resected and retrieved. - Normal examined duodenum. Moderate Sedation: Moderate (conscious) sedation was administered by the nurse and supervised by the endoscopist. The following parameters were monitored: oxygen saturation, heart rate, blood pressure, and response to care. Total physician intraservice time was 20 minutes. Recommendation: - Await pathology results. - Return to GI clinic. González Reynoso MD [id number] GONZÁLEZ REYNOSO MD 11/09/2024 5:34:22 PM This report has been signed electronically. Number of Addenda: 0 Note Initiated On: 11/09/2024 4:55 PM Bindu Lo MD GI PROCEDURE ORDERABLES Final Result * Anatomic Pathology (11/09/2024 12:00 AM EDT) Final Diagnosis A. STOMACH, ANTRUM, X 2: Hyperplastic polyps. B. STOMACH, X 2: Fundic gland polyps. C. STOMACH: Antral mucosa with reactive gastropathy. Corpus mucosa within normal limits. [facility] PATHOLOGY Clinical History Gastroesophageal reflux disease, unspecified whether esophagitis present. [facility] PATH[facility] Operation Esophagogastroduode noscopy. [facility] PATH[facility] Tissue Submitted A/1. Stomach, antrum, x 2 removed with snare B/2. Stomach, x 2 removed with forceps C/3. Stomach [facility] PATH[facility] Gross Description The specimen is received in 3 parts, each labeled with the patient's name and medical record number. Part A received in formalin labeled Stomach, antrum, x 2 removed with snare consists of 2 fragments of irregular alvares-pink soft tissue (0.6 and 0.7 cm in greatest dimension). The specimen is submitted in toto. A1: 2 fragments. Part B received in formalin labeled Stomach, x 2 removed with forceps consists of 2 fragments of irregular alvares-pink soft tissue (averaging 0.4 cm in greatest dimension). The specimen is submitted in toto. B1: 2 fragments. Part C received in formalin labeled Stomach consists of 2 fragments of irregular alvares-pink soft tissue (0.2 and 0.5 cm in greatest dimension). The specimen is submitted in toto. C1: 2 fragments. Dictated by: Latosha Rachel By his/her signature below, the senior physician certifies that he/she personally conducted a microscopic examination ( gross only exam if so stated) of the described specimen(s) and rendered or confirmed the diagnosis(es) related thereto. [facility] Procedure Comments ProcCreate a paraffin block - [facility] Create a paraffin block - [facility] Create a paraffin block - [facility] (order for accession only, not for recut) H&E stain on levels slide - [facility] (order for accession only, not for recut) H&E stain on levels slide - [facility] (order for accession only, not for recut) H&E stain on levels slide - [facility] PATHOLOG[facility] Report Accession No: [id number] Date: 1965 Sex: Female [facility] Department of Pathology [address] [place], [place] [address]IA License No.: [id number] Sap Crm Developer: Dr. Fermin Moreno M.D., Ph.D. Physician: GONZÁLEZ REYNOSO MD, PhD Procedure Date: 11/09/2024 Resident: Magaly Smith MD, MS Pathologist: Fermin Moreno M.D., Ph.D. PATHOLOGIC DIAGNOSIS: A. STOMACH, ANTRUM, X 2: Hyperplastic polyps. B. STOMACH, X 2: Fundic gland polyps. C. STOMACH: Antral mucosa with reactive gastropathy. Corpus mucosa within normal limits. CLINICAL DATA: History: Gastroesophageal reflux disease, unspecified whether esophagitis present. Operation: Esophagogastroduode noscopy. TISSUE SUBMITTED: A/1. Stomach, antrum, x 2 removed with snare B/2. Stomach, x 2 removed with forceps C/3. Stomach GROSS DESCRIPTION: The specimen is received in 3 parts, each labeled with the patient's name and medical record number. Part A received in formalin labeled Stomach, antrum, x 2 removed with snare consists of 2 fragments of irregular alvares-pink soft tissue (0.6 and 0.7 cm in greatest dimension). The specimen is submitted in toto. A1: 2 fragments. Part B received in formalin labeled Stomach, x 2 removed with forceps consists of 2 fragments of irregular alvares-pink soft tissue (averaging 0.4 cm in greatest dimension). The specimen is submitted in toto. B1: 2 fragments. Part C received in formalin labeled Stomach consists of 2 fragments of irregular alvares-pink soft tissue (0.2 and 0.5 cm in greatest dimension). The specimen is submitted in toto. C1: 2 fragments. Dictated by: Latosha Rachel By his/her signature below, the senior physician certifies that he/she personally conducted a microscopic examination ( gross only exam if so stated) of the described specimen(s) and rendered or confirmed the diagnosis(es) related thereto. Final Diagnosis by Fermin Moreno M.D., Ph.D., Electronically signed on Thursday November 14, 2024 at 02:16:48PM [facility] Conversion Type (Gastric biopsy) 11/09/2024 11/10/2024 Conversion Type (Gastric biopsy) 11/09/2024 11/10/2024 Conversion Type (Gastric biopsy) 11/09/2024 11/10/2024 González Reynoso MD, PhD PATHOLOGY ORDERABLES Edited Result - Final [facility] * Pap Test (07/22/2024 12:00 AM EDT) Report [address] [address] Wireless Telegrapher: Noman Santiago MD JEWELRY SALES REPRESENTATIVE Cytology Report FINAL DIAGNOSIS A. PAP SMEAR (THIN PREP) CE: SPECIMEN ADEQUACY: Satisfactory for evaluation; transformation zone present. INTERPRETATION: NEGATIVE FOR INTRAEPITHELIAL LESION OR MALIGNANCY. Atrophy. This specimen was analyzed by the automated ThinPrep Imaging System ([employer].) and the selected salgado were reviewed by a leather staker. Electronically Signed Out By: SAJAN Faust(ASCP) The Pap test is a screening test primarily for squamous cancers and precursors and has associated false-negative and false-positive results. New technologies such as liquid-based preparations may decrease but will not eliminate all false-negative results. Regular sampling and follow-up of unexplained clinical signs and symptoms are recommended to minimize false negative results. PROCEDURES/ADDENDA HPV Testing (Requested) Ordered Date: 07/25/2024 A. PAP SMEAR (THIN PREP) CE: High-risk HPV Panel w/ extended genotyping NEG HPV 16-NEG HPV 18-NEG HPV 45-NEG HPV 33/58-NEG HPV 31-NEG HPV 56/59/66-NEG HPV 51-NEG HPV 52-NEG HPV 35/39/68-NEG Performed by real-time polymerase chain reaction (PCR) at [facility], [address] [place] [address] using the FDA-approved [employer] Onclarity HPV Assay with extended genotyping. Uses of the assay in scenarios other than those approved by the FDA should be considered off-label use. The accuracy and precision of this test for all other off-label specimen sources has been verified in the Cytopathology Laboratory of the [facility] and has not been cleared or approved by the U.S. Food and Drug Administration. Clinical correlation is advised. The assay assesses the E6/E7 DNA target and utilizes human beta globin as an internal control. Cytology and HPV testing are screening assays and should not be used as the sole means of detecting cancer. False-positives and false-negatives can occur. CLINICAL HISTORY Date of Last Menstrual Period: Not Provided Menstrual History: Post Menopausal Other Clinical Conditions: Screening Pap SPECIMEN SOURCE A: PAP SMEAR (THIN PREP) CE Patient Name: LAURITA BORJA : 1965 (Age: 59) Sex: F Institution: [facility] Location: [facility] Date of Collection: 07/22/2024 Date of Reported: 08/01/2024 07:54 Results to: Pricila Castellanos MD [facility] Final Diagnosis A. PAP SMEAR (THIN PREP) CE: SPECIMEN ADEQUACY: Satisfactory for evaluation; transformation zone present. INTERPRETATION: NEGATIVE FOR INTRAEPITHELIAL LESION OR MALIGNANCY. Atrophy. This specimen was analyzed by the automated ThinPrep Imaging System (AgSquared.) and the selected salgado were reviewed by a leather staker. [facility] Results\Inter pretation A. PAP SMEAR (THIN PREP) CE: High-risk HPV Panel w/ extended genotyping NEG HPV 16-NEG HPV 18-NEG HPV 45-NEG HPV 33/58-NEG HPV 31-NEG HPV 56/59/66-NEG HPV 51-NEG HPV 52-NEG HPV 35/39/68-NEG Performed by real-time polymerase chain reaction (PCR) at [facility], [address] [place] [address] using the FDA-approved BD Onclarity HPV Assay with extended genotyping. Uses of the assay in scenarios other than those approved by the FDA should be considered off-label use. The accuracy and precision of this test for all other off-label specimen sources has been verified in the Cytopathology Laboratory of the [facility] and has not been cleared or approved by the U.S. Food and Drug Administration. Clinical correlation is advised. The assay assesses the E6/E7 DNA target and utilizes human beta globin as an internal control. Cytology and HPV testing are screening assays and should not be used as the sole means of detecting cancer. False-positives and false-negatives can occur. [facility] Conversion Type (Conversion Source) 07/22/2024 07/25/2024 9:33 AM EDT Pricila Castellanos MD CYTOLOGY ORDERABLES Edited Re sult - Final [address] [address] * COLONOSCOPY FOR RESULT ENTRY ONLY (02/29/2024) Pathologist [facility] Colonoscopy Repeat in 1 year Comment:External Historical Provider HEALTH MAINTENANCE Final Result * (ABNORMAL) Lipid panel (10/15/2023 3:03 PM EDT) HDL 81 mg/dL [facility] Comment: Interpretation <40 mg/dL: Low HDL cholesterol (major risk factor for CHD) Greater than or equal to 60 mg/dL: High HDL cholesterol ( negative risk factor for CHD) HDL - cholesterol is affected by a number of factors, e.g. smoking, excerise, hormones, sex and age. CHOLESTEROL 191 0 - 240 mg/dL [facility] TRIGLYCERIDES 103 30 - 160 mg/dL [facility] LDL 89 50 - 129 mg/dL [facility] Comment: LDL levels in terms of risk for coronary heart disease: <100 mg/dL: Optimal 100-129 mg/dL: Near or above optimal 130-159 mg/dL: Borderline high 160-189 mg/dL: High >190 mg/dL: Very High CARDIAC RISK RATIO 2.4(L) 3.3 - 4.4 C [facility] Blood 10/15/2023 3:03 PM EDT 10/15/2023 3:04 PM EDT us Bindu Lo MD LAB BLOOD ORDERABLES Final Res ult [address] [address] * Fecal immunochemical test x1 (FIT) (05/28/2021 1:58 PM EDT) Immuno Fecal Occult Negative Negative [facility] 05/28/2021 1:58 PM EDT 05/28/2021 2:00 PM EDT us Caprice OSORIO BODY FLUIDS AND STOOLS LIN COLÓN Final Result Performing Organization Address [facility]/ZIP Co de Phone Number [address] [address] from Last 3 Months or Most Recently Relevant to Health Maintenance [place] [place] [address] OUT STATE POS BLUE CROSS OUT OF STATE POS BLUE CROSS OUT OF STATE POS BLUE CROSS OUT OF STATE [place] [address] [place] [address] OUT OF [facility] POS [facility] OUT OF [facility] POS Care Teams Draftsperson Relationship Specialty Start Date End Date Bindu Lo MD [address] [place] [address], [address] [place] [address] PCP - General Internal Medicine 06/21/18 Pricila Castellanos MD [address] [place] [address], [facility] [address] [place] [address] Historical LMR Provider 12/14/16 Bindu Lo MD [address] [place] [address], [address] [place] [address] Historical LMR Provider 12/14/16 Additional Source Comments The information contained in this document represents components of the legal health record. It is not the complete legal health record.[facility]
--- OUTSIDE RECORDS SUMMARY | 2024-12-22 15:41 | XMS_ITS | Encounter Summary ---
Author Organization [facility] Address [address] [place] [address] Phone Care Team Providers Care Soakers Supervisor Name Role Phone Pricila Castellanos MD Unavailable [phone] Ronny Lo MD Unavailable [phone] Ronny Lo MD Primary Care Provider [phone] Encounter Details Date Type Department Care Team (Latest Contact Info) Description 04/21/2023 Transcribe Orders [facility] [address] [id number] Caprice Murray, PA [address] [place] [address] Gastroesophageal reflux disease with esophagitis without hemorrhage (Primary Dx) Social History Tobacco Use Types [...] work, study, or receive health care? No 09/12/2022 Education Answer Date Recorded Are you interested in help w ith more adult education (for example, completing high school, GED, job training, learning the [place] language, technical skills, or developing parenting skills)? No 09/12/2022 Are you concerned about learning? Not on file 09/12/2022 No 09/12/2022 Yes 09/12/2022 Food Answer Date Recorded Within the past 6 months we worried whether our food would run out before we got money to buy more. Never True 09/12/2022 Within the past 6 months the food we bought just didn't last and we didn't have enough money to get more. Never True Residential Stability Answer Date Recor ded What is your housing situation today? I have negro sing 09/12/2022 How many times have you move d in the past 12 months? Zero (I did not move) 09/12/2022 Paying for Meds Answer Date Recorded Do you have trouble paying for medicines? No 09/12/2022 Paying Utility Bills Answer Date Record ed Do you have trouble paying your heating or elect ricity bill? No 09/12/2022 Transportation Answer Date Recorded Has the lack of transportati on kept you from medical appointments or from getting medications? No 09/12/2022 Digital Access Answer Date Recorded No 09/12/2022 Yes 09/12/2022 Do you have reliable internet access at home? Ye s 09/12/2022 Do you have a device (e.g., phone, tablet, computer) with a working camera? 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 Not on file Not on ramana e Not on file documented as of this encounter Plan of Treatment Upcoming Encounters Date Type Department Care Team (Late st Contact Info) Description 01/24/2025 1:45 PM EST Office Visit [facility] Gastroenterology Clinic 10 [place] [address] Unknown, Unknown, Caprice Machuca PA-C [address] [address] 03/20/2025 3:40 PM EST Office Visit [facility] Medical Specialties 45 [facility] [address] [place] [address] Christian Jackson MD, PhD [address] [place] [address] [email or web address] Scheduled Procedures Name Priority Associated Diagnoses Date/Ti me ESOPHAGEAL FUNCTION TEST PH WITH IMPEDANCE CATHETER Gastroesophageal reflux disease, unspecified whether esophagitis present documented as of this encounter Results * 25-OH vitamin D (04/21/2023 3:35 PM EST) 25 OH VIT D (TOTAL) 33 30 - 60 ng/mL [facility] Blood 04/21/2023 3:35 PM EST 04/21/2023 3:42 PM EST Caprice OSORIO LAB BLOOD ORDERABLES Final Result Performing Organization Address [facility]/ZIP Co de Phone Number [address] [address] * Vitamin B12 (04/21/2023 3:35 PM EST) VITAMIN B12 970 232 - 1,245 pg/mL [facility] Blood 04/21/2023 3:35 PM EST 04/21/2023 3:42 PM EST Caprice OSORIO LAB BLOOD ORDERABLES Final Result Performing Organization Address City/[facility]/ZIP Co de Phone Number [address] [address] * (ABNORMAL) Folate (04/21/2023 3:35 PM EST) FOLIC ACID >20.0(H) 4.2 - 19.9 ng/mL [facility] Blood 04/21/2023 3:35 PM EST 04/21/2023 3:42 PM EST Caprice OSORIO LAB BLOOD ORDERABLES Final Result Performing Organization Address [facility]/ZIP Co de Phone Number [address] [address] * Ferritin (04/21/2023 3:35 PM EST) FERRITIN 40 13 - 150 ug/L [facility] Blood 04/21/2023 3:35 PM EST 04/21/2023 3:42 PM EST us Caprice OSORIO LAB BLOOD ORDERABLES Final Result Performing Organization Address [facility]/ZIP Co de Phone Number [address] [address] * Iron and iron binding capacity (04/21/2023 3:35 PM EST) IRON 94 30 - 160 ug/dL [facility] IRON BINDING CAPACITY 343 228 - 428 ug/dL [facility] TRANSFERRIN SATURAT. 27 15 - 50 % [facility] Blood 04/21/2023 3:35 PM EST 04/21/2023 3:42 PM EST us Caprice OSORIO LAB BLOOD ORDERABLES Final Result Performing Organization Address [facility]/ZIP Co de Phone Number [address] [address] * CBC (04/21/2023 3:35 PM EST) WBC 4.57 4.00 - 11.00 K/uL [facility] RBC 4.08 3.72 - 5.30 M/uL [facility] HGB 12.2 11.4 - 15.9 g/dL [facility] HCT 37.5 34.2 - 46.8 % [facility] PLT 232 140 - 430 K/uL [facility] MCV 91.9 78.0 - 97.0 fL [facility] MCH 29.9 25.0 - 33.0 pg [facility] MCHC 32.5 32.0 - 36.0 g/dL [facility] RDW 11.9 11.0 - 16.0 % [facility] MPV 10.9 8.4 - 12.8 fl [facility] Blood 04/21/2023 3:35 PM EST 04/21/2023 3:42 PM EST us Caprice OSORIO LAB BLOOD ORDERABLES Final Result Performing Organization Address City/State/[facility] Co de Phone Number [facility] [address] [place] [address] documented in this encounter Visit Diagnoses Diagnosis Gastroesophageal reflux disease with esophagitis without hemorrhage- Primary documented in this encounter Additional Health Concerns Assessment Noted Time PHQ-2 Depression Total Score: 0 09/13/19 23 4:50 PM EDT documented as of this encounter Care Teams Soakers Supervisor Relationship Specialty Start Date End Date Ronny Lo MD [address] [facility], [address] [place] [address] [email or web address] PCP - General Internal Medicine 06/21/18 Pricila Castellanos MD [address] [facility], [address] [place] [address] Historical LMR Provider 12/14/16 Ronny Lo MD [address] [place] [address], [address] [place] [address] [email or web address] Historical LMR Provider 12/14/16 documented as of this encounter Additional Source Comments The information contained in this document represents components of the legal health record. It is not the complete legal health record.[facility]
--- OUTSIDE RECORDS SUMMARY | 2024-12-22 15:41 | XMS_ITS | Encounter Summary ---
Author Organization [facility] Address [email or web address] [address] Phone Care Team Providers Care Probation Counselor Name Role Phone Pricila Castellanos MD Unavailable [phone] Ronny Lo MD Unavailable [phone] Ronny Lo MD Primary Care Provider [phone] Ronny Lo MD Unavailable [phone] Reason for Referral * Physical Therapy (Within 2 weeks) - Closed Specialty Diagnoses / Procedures Referred By Aida adams Referred To Contact Physical Therapy Diagnoses Cervicogenic headache Cervicalgia PT Pain Ronny Lo MD Phone: tel: fax: [email or web address] [facility] [address] [place] [address] Phone: tel: Referral ID Status Reason Start Date Expiration Date Visits Re quested Visits Authorized [id number] Closed 08/05/2021 02/22/2022 12 12 Reason for Visit * Reason Onset Date Comments Referral 08/01/2021 Encounter Details Date Type Department Care Team (Late st Contact Info) Description 08/01/2021 Telephone [place] [address] [address] [place], [place] [phone] Ronny Lo MD [address] [place] [address], [address] [place] [address] Referral Social History Tobacco Use Types Packs/Day Years [...] on file documented as of this encounter Progress Notes * Ronny Lo MD - 08/01/2021 9:57 PM EDT Referral placed. * Mirela Miguel RN - 08/01/2021 3:11 PM EDT Google search of NPI number reveals this request is for PSSP. To Dr. Lo: Referral pended for review and signature. PT was mentioned as option in OV note 06/10/21. documented in this encounter Plan of Treatment Upcoming Encounters Date Type Department Care Team (Late st Contact Info) Description 01/24/2025 1:45 PM EST Office Visit [facility] Gastroenterology Clinic 10 [place] [address] Unknown, Unknown, Caprice Machuca PA-C [address] [address] 03/20/2025 3:40 PM EST Office Visit [facility] Medical Specialties 45 [facility] [address] [place] [address] Christian Jackson MD, PhD [address] [place] [address] [email or web address] Scheduled Procedures Name Priority Associated Diagnoses Date/Ti me ESOPHAGEAL FUNCTION TEST PH WITH IMPEDANCE CATHETER Gastroesophageal reflux disease, unspecified whether esophagitis present Scheduled Referrals Name Type Priority Associated Diagnoses Order Schedule Ambulatory referral to External Physical Therapy Outpatient Referral Routine Cervicogenic headache Cervicalgia Ordered: 08/01/2021 documented as of this encounter Visit Diagnoses Diagnosis Cervicogenic headache- Primary Headache Cervicalgia documented in this encounter Additional Health Concerns Infection Onset Date Last Indicated Resolved Time CoV-Exposed Comment:Recent close contact documented in the COVID-19 PCR/PRO order 09/12/2021 09/16/2021 10/03/2021 1:22 AM E DT CoV-Presumed 09/17/2021 09/17/2021 10/08/2021 1:21 AM EDT Assessment Noted Time PHQ-2 Depression Total Score: 0 12/25/19 18 11:48 AM EDT documented as of this encounter Care Teams Probation Counselor Relationship Specialty Start Date End Date Ronny Lo MD [address] [place] [address], [address] [place] [address] [email or web address] PCP - General Internal Medicine 06/21/18 Pricila Castellanos MD [address] [place] [address], [address] [place] [address] [email or web address] Historical LMR Provider 12/14/16 Ronny Lo MD [address] [place] [address], [address] [place] [address] [email or web address] Historical LMR Provider 12/14/16 Ronny Lo MD [address] [place] [address], [address] [place] [address] [email or web address] Insurance Assigned Provider 06/26/18 06/28/22 documented as of this encounter Additional Source Comments The information contained in this document represents components of the legal health record. It is not the complete legal health record.[facility]
--- OUTSIDE RECORDS SUMMARY | 2024-12-22 15:41 | XMS_ITS | Encounter Summary ---
Author Organization [facility] Address [address] [facility] [address] [place] [address] Phone Care Team Providers Care Founder Ceo & President Name Role Phone Dirk Estes MD Unavailable [phone] Barbi Zambrano MD Unavailable [phone] Ysabel Lynch SOFTWARE QA MANAGER Unavailable [phone] Pricila Castellanos MD Unavailable Jordin Barker GENERAL SCIENCE TEACHER Unavailable [phone] Rubina Ivey SOFTWARE QA MANAGER Unavailable [phone] Stephanie Vera DO Unavailable [phone] Ronny Lo MD Unavailable [phone] Daniel Horvath MD Unavailable [phone] Bo Ang GENERAL SCIENCE TEACHER Unavailable Ronny Lo MD Primary Care Provider [phone] Ronny Lo MD Unavailable Encounter Details Date Type Department Care Team (Late st Contact Info) Description 06/21/2018 Ancillary Orders [facility] Family Medicine [address] [place] [address] [place] [id number] Ronny Lo MD [address] [facility], [address] [place], [place] [id number] [email or web address] Breast screening Social History Tobacco Use Types Packs/Day Years [...] Upcoming Encounters Date Type Department Care Team ([facility] st Contact Info) Description 01/24/2025 1:45 PM EST Office Visit [facility] Gastroenterology Clinic [address] [place] [address] Unknown, Unknown, Caprice Machuca PA-C [address] [place] [address] [email or web address] 03/20/2025 3:40 PM EST Office Visit [facility] Medical [facility] [address] [address] Christian Jackson MD, PhD [address] [place] [phone] [email or web address] Scheduled Procedures Name Priority Associated Diagnoses Date/Ti me ESOPHAGEAL FUNCTION TEST PH WITH IMPEDANCE CATHETER Gastroesophageal reflux disease, unspecified whether esophagitis present documented as of this encounter Results * BI MAMMOGRAM SCREENING WITH TOMOSYNTHESIS WITH CAD (BILATERAL) (06/25/2018 10:38 AM EDT) Anatomical Region Laterality Modality Breast Left, Breast Right, Breast Bilateral Bila teral Mammography 06/25/2018 1:23 PM EDT Impressions 06/25/2018 1:25 PM EDT Stable appearance relative to prior imaging. No findings suggestive of malignancy are seen. BI-RADS CATEGORY: 1 - Negative. DENSITY: The breast tissue is heterogeneously dense, an appearance which lowers the sensitivity of mammography. POS - [id number] Narrative 06/25/2018 1:25 PM EDT Full-field digital mammography is obtained with computer-aided detection. Comparison with prior imaging from 06/24/2017 is made with older imaging dating back as far as 04/06/2012 also reviewed. There is heterogeneous fibroglandular density evident in the breasts. In addition to 2-D C view imaging, tomosynthesis images are obtained in two projections of each breast. No dominant soft tissue mass of concern, suspicious cluster of calcifications, significant interval skin changes, or architectural distortion is identified. Procedure Note Adonay Will MD - 06/25/2018 Full-field digital mammography is obtained with computer-aided detection.Comparison with prior imaging from 06/24/2017 is made with older imagingdating back as far as 04/06/2012 also reviewed. There is heterogeneous fibroglandular density evident in the breasts. Inaddition to 2-D C view imaging, tomosynthesis images are obtained in twoprojections of each breast. No dominant soft tissue mass of concern, suspicious cluster ofcalcifications, significant interval skin changes, or architecturaldistortion is identified. IMPRESSION: Stable appearance relative to prior imaging. No findings suggestive ofmalignancy are seen. BI-RADS CATEGORY: 1 - Negative. DENSITY: The breast tissue is heterogeneously dense, an appearance whichlowers the sensitivity of mammography. POS - [id number] Ronny Lo MD IMG MG EXAMS Final Result documented in this encounter Visit Diagnoses Diagnosis Breast screening Breast screening, unspecified Breast screening Breast screening, unspecified documented in this encounter Additional Health Concerns Infection Onset Date Last Indicated Resolved Time CoV-Risk 07/16/2021 07/16/2021 07/27/2021 1:24 AM EDT CoV-Exposed Comment:Recent close contact documented in the COVID-19 PCR/PRO order 09/12/2021 09/16/2021 10/03/2021 1:22 AM E DT CoV-Presumed 09/17/2021 09/17/2021 10/08/2021 1:21 AM EDT Assessment Noted Time PHQ-2 Depression Total Score: 0 12/25/19 18 11:48 AM EDT documented as of this encounter Care Teams Founder Ceo & President Relationship Specialty Start Date End Date Ronny Lo MD [address] [place] [address], [address] [place] [address] PCP - General Internal Medicine 06/21/18 Dirk Estes MD [address] [place] [address], [address] [place] [address] Historical LMR Provider 12/14/16 03/02/21 Barbi Zambrano MD [address] [place] [address] [email or web address] Historical LMR Provider 12/14/16 03/02/21 Ysabel Lynch, ELIZABETH [address] [place] [address] [facility] [address] [email or web address] Historical LMR Provider 12/14/16 03/02/21 Pricila Castellanos MD [address] [place] [address], [address] [place] [address] Historical LMR Provider 12/14/16 Jordin Barker, RUSS [address] [place] [address], [address] [place] [address] Historical LMR Provider 12/14/16 03/02/21 Rubina Ivey NP [facility] [place] [address] Historical LMR Provider 12/14/16 2 Jody Stephaniejusta Green DO [address] [place] [address] Historical LMR Provider 12/14/16 2 Ronny Lo MD [address] [place] [address], [address] [place] [address] [email or web address] Historical LMR Provider 12/14/16 Daniel Horvath MD [address] [facility] [address] [place] [address] [email or web address] Historical LMR Provider 12/14/16 03/02/21 Bo Ang CNP [address] [place] [address], [address] [place] [address] Historical LMR Provider 12/14/16 Ronny Lo MD [address] [place] [address], [address] [place] [address] Insurance Assigned Provider 06/26/18 06/28/22 documented as of this encounter Additional Source Comments The information contained in this document represents components of the legal health record. It is not the complete legal health record.[facility]
--- OUTSIDE RECORDS SUMMARY | 2024-12-22 15:41 | XMS_ITS | Encounter Summary ---
Author Organization [facility] Address [address] [facility] [address] [place] [address] Phone Care Team Providers Care Plush Dresser Name Role Phone Dirk Estes MD Unavailable [phone] Barbi Zambrano MD Unavailable Ysabel Lynch MIGRATORY WORKER Unavailable [phone] Pricila Castellanos MD Unavailable Jordin Barker CONCESSIONIST Unavailable [phone] Rubina Ivey MIGRATORY WORKER Unavailable [phone] Stephanie Vera DO Unavailable [phone] Ronny Lo MD Unavailable [phone] Daniel Horvath MD Unavailable [phone] Bo Ang CONCESSIONIST Unavailable Ronny Lo MD Primary Care Provider +[phone] Ronny Lo MD Unavailable [phone] Encounter Details Date Type Department Care Team (Late st Contact Info) Description 09/05/2020 Ancillary Orders Cynthia [facility] [address] [place] [address] [place] [address] Ronny Lo MD 22 [facility], [address] [place], [place] [phone] [email or web address] Breast screening Social History Tobacco Use [...] Upcoming Encounters Date Type Department Care Team ([facility] st Contact Info) Description 01/24/2025 1:45 PM EST Office Visit [facility] Gastro[facility]ology Clinic [address] [place] [address] Unknown, Unknown, Caprice Machuca PA-C [address] [place] [address] [email or web address] 03/20/2025 3:40 PM EST Office Visit [facility] Medical [facility] [address] [address] Christian Jackson MD, PhD [address] [place] [address] [email or web address] Scheduled Procedures Name Priority Associated Diagnoses Date/Ti me ESOPHAGEAL FUNCTION TEST PH WITH IMPEDANCE CATHETER Gastroesophageal reflux disease, unspecified whether esophagitis present documented as of this encounter Results * BI MAMMOGRAM SCREENING WITH TOMOSYNTHESIS WITH CAD (BILATERAL) (09/07/2020 12:15 PM EDT) Anatomical Region Laterality Modality Breast Left, Breast Right, Breast Bilateral Bila teral Mammography 09/07/2020 12:1 0 PM EDT Impressions 09/07/2020 12:30 PM EDT BILATERAL BREASTS: Negative, no evidence of malignancy. Normal interval follow- up is recommended in 12 months. Bi-RADS: BI-RADS CATEGORY: 1 - Negative. DENSITY: The breast tissue is heterogeneously dense, which could obscure a lesion on mammography. Narrative 09/07/2020 12:30 PM EDT STUDY: Bilateral screening mammography with tomosynthesis and CAD TECHNIQUE: Bilateral full-field digital screening mammography is obtained and read in conjunction with computer-aided detection. Tomosynthesis as well as 2-D C view imaging were obtained. COMPARISON: Comparison made to multiple prior, most recent June 25, 2018, and most remote November 30, 2008. BREAST COMPOSITION: The breast tissue is heterogeneously dense, which may obscure small masses. BILATERAL BREASTS: No significant masses, suspicious calcifications or other abnormalities are seen. Procedure Note Kiara Roman MD - 09/07/2020 STUDY: Bilateral screening mammography with tomosynthesis and CAD TECHNIQUE: Bilateral full-field digital screening mammography is obtainedand read in conjunction with computer-aided detection. Tomosynthesis aswell as 2-D C view imaging were obtained. COMPARISON: Comparison made to multiple prior, most recent June 25, 2018,and most remote November 30, 2008. BREAST COMPOSITION: The breast tissue is heterogeneously dense, which mayobscure small masses. BILATERAL BREASTS: No significant masses, suspicious calcifications orother abnormalities are seen. IMPRESSION: BILATERAL BREASTS: Negative, no evidence of malignancy. Normal intervalfollow-up is recommended in 12 months. Bi-RADS: BI-RADS CATEGORY: 1 - Negative. DENSITY: The breast tissue is heterogeneously dense, which could obscurea lesion on mammography. Ronny Lo MD [facility] MG EXAMS Final Result documented in this [...] documented as of this encounter Care Teams Plush Dresser Relationship Specialty Start Date End Date Ronny Lo MD [address] [place] [address], [address] [place] [address] PCP - General Internal Medicine 06/21/18 Dirk Estes MD [address] [place] [address], [address] [place] [address] Historical LMR Provider 12/14/16 03/02/21 Barbi Zambrano MD [address] [place] [address] [email or web address] Historical LMR Provider 12/14/16 03/02/21 Ysabel Lynch, ELIZABETH [address] [place] [address] 2_[place] [address] [email or web address] Historical LMR Provider 12/14/16 03/02/21 Pricila Castellanos MD [address] [place] [address], [address] [place] [address] Historical LMR Provider 12/14/16 Jordin Barker, CONCESSIONIST [address] [place] [address], [address] [place] [address] Historical LMR Provider 12/14/16 03/02/21 Rubina Ivey NP [facility] [place] [address] Historical LMR Provider 12/14/16 2 Stephanie Vera DO [address] [place] [address] Historical LMR Provider 12/14/16 2 Ronny Lo MD [address] [place] [address], [address] [place] [address] Historical LMR Provider 12/14/16 Daniel Horvath MD [address] [place] [address] Floor 1 [place] [address] [email or web address] Historical LMR Provider 12/14/16 03/02/21 Bo Ang CNP [address] [place] [address], [address] [place] [address] Historical LMR Provider 12/14/16 Ronny Lo MD [address] [place] [address], [address] [place] [address] Insurance Assigned Provider 06/26/18 06/28/22 documented as of this encounter Additional Source Comments The information contained in this document represents components of the legal health record. It is not the complete legal health record.[facility]
--- OUTSIDE RECORDS SUMMARY | 2024-12-22 15:41 | XMS_ITS | Encounter Summary ---
Author Organization [facility] Address [address] [facility] [address] [place] [address] Phone Care Team Providers Care Cordwood Cutter Name Role Phone Pricila Castellanos MD Unavailable [phone] Ronny Lo MD Unavailable [phone] Ronny Lo MD Primary Care Provider [phone] Encounter Details Date Type Department Care Team (Late st Contact Info) Description 05/11/2023 Procedure Pass [facility], [address] [phone] Social History Tobacco Use Types Packs/Day Years [...] high school, GED, job training, learning the Georgian language, technical skills, or developing parenting skills)? [...] housing situation today? I have negro wall 09/12/2022 How many times have you move [...] Upcoming Encounters Date Type Department Care Team ([facility] st Contact Info) Description 01/24/2025 1:45 PM EST Office Visit [facility] Gastroenterology Clinic 10 [place] [address] Unknown, Unknown, Caprice Machuca PA-C [address] [address] [email or web address] 03/20/2025 3:40 PM EST Office Visit [facility] Medical Specialties [address] [place] [address] Christian Jackson MD, PhD [address] [place] [address] [email or web address] Scheduled Procedures Name Priority Associated Diagnoses Date/Ti me ESOPHAGEAL FUNCTION TEST PH WITH IMPEDANCE CATHETER Gastroesophageal reflux disease, unspecified whether esophagitis present documented as of this encounter Visit Diagnoses Not on filedocumented in this encounter Additional Health Concerns Assessment Noted Time PHQ-2 Depression Total Score: 0 09/13/19 23 4:50 PM EDT documented as of this encounter Care Teams Cordwood Cutter Relationship Specialty Start Date End Date Ronny Lo MD [address] [place] [address], [address] [place] [address] PCP - General Internal Medicine 06/21/18 Pricila Castellanos MD [address] [place] [address], [address] [place] [address] Historical LMR Provider 12/14/16 Ronny Lo MD [address] [place] [address], [address] [place] [address] Historical LMR Provider 12/14/16 documented as of this encounter Additional Source Comments The information contained in this document represents components of the legal health record. It is not the complete legal health record.[facility]
--- OUTSIDE RECORDS SUMMARY | 2024-12-22 15:41 | XMS_ITS | Encounter Summary ---
Author Organization [facility] Address [address] [employer] [address] [address] Phone Care Team Providers Care Ordnance Artificer Name Role Phone Dirk Estes MD Unavailable [phone] Barbi Zambrano MD Unavailable [phone] Ysabel Lynch DIRECTOR ORACLE Unavailable Pricila Castellanos MD Unavailable Jordin Barker UNIVERSITY SERVICES PROGRAM ASSOCIATE Unavailable [phone] Rubina Ivey DIRECTOR ORACLE Unavailable Stephanie Vera DO Unavailable Ronny Lo MD Unavailable [phone] Dainel Horvath MD Unavailable [phone] Bo Ang UNIVERSITY SERVICES PROGRAM ASSOCIATE Unavailable Jordin Barker UNIVERSITY SERVICES PROGRAM ASSOCIATE Primary Care Provider Ronny Lo MD Primary Care Provider [phone] Ronny Lo MD Unavailable [phone] Encounter Details Date Type Department Care Team (Late st Contact Info) Description 12/30/2017 Ancillary Orders Virtual Department 30 [place] [address] Caprice Murray PA [address] [place] [phone] Rectal bleeding; Abdominal pain, left lower quadrant Social History Tobacco Use Types Packs/Day Years [...] Description 01/24/2025 1:45 PM EST Office Visit [facility] Gastroenterology Clinic [address] [place] [address] Unknown, Unknown, Caprice Machuca PA-C [address] [address] 03/20/2025 3:40 PM EST Office Visit [facility] Medical Specialties [address] [address] Christian Jackson MD, PhD [address] [place] [address] [email or web address] Scheduled Procedures Name Priority Associated Diagnoses Date/Ti me ESOPHAGEAL FUNCTION TEST PH WITH IMPEDANCE CATHETER Gastroesophageal reflux disease, unspecified whether esophagitis present documented as of this encounter Visit Diagnoses Diagnosis Rectal bleeding Hemorrhage of rectum and anus Abdominal pain, left lower quadrant documented in this encounter Additional Health Concerns Infection Onset Date Last Indicated Resolved Time CoV-Risk 07/16/2021 07/16/2021 07/27/2021 1:24 AM EDT CoV-Exposed Comment:Recent close contact documented in the COVID-19 PCR/PRO order 09/12/2021 09/16/2021 10/03/2021 1:22 AM E DT CoV-Presumed 09/17/2021 09/17/2021 10/08/2021 1:21 AM EDT Assessment Noted Time PHQ-2 Depression Total Score: 0 12/25/19 11:48 AM EDT documented as of this encounter Care Teams Ordnance Artificer Relationship Specialty Start Date End Date Jordin BarkerRUSS [address] [place] [address], [address] [place] [address] PCP - General Family Medicine 12/24/17 06/20/18 Ronny Lo MD [address] [place] [address], [address] [place] [address] PCP - General Internal Medicine 06/21/18 Dirk Estes MD [address] [place] [address], [address] [place] [address] Historical LMR Provider 12/14/16 03/02/21 Barbi Zambrano MD [address] [place] [address] [email or web address] Historical LMR Provider 12/14/16 03/02/21 Ysabel Lynch NP [address] [place] [address] 2_[place] [address] [email or web address] Historical LMR Provider 12/14/16 03/02/21 Pricila Castellanos MD [address] [place] [address], [address] [place] [address] Historical LMR Provider 12/14/16 Jordin Barker CNP [address] [place] [address], [address] [place] [address] Historical LMR Provider 12/14/16 03/02/21 Rubina Ivey DIRECTOR ORACLE [address] [place] [phone] Historical LMR Provider 12/14/16 2 Stephanie Vera DO [address] [place] [address] Historical LMR Provider 12/14/16 2 Ronny Lo MD [address] [place] [address], [address] [place] [address] Historical LMR Provider 12/14/16 Daniel Horvath MD 22 [facility] Floor 1 [place] [address] [email or web address] Historical LMR Provider 12/14/16 03/02/21 Bo Ang, RUSS [address] [place] [address], [address] [place] [address] Historical LMR Provider 12/14/16 Ronny Lo MD [address] [place] [address], [address] [place] [address] Insurance Assigned Provider 06/26/18 06/28/22 documented as of this encounter Additional Source Comments The information contained in this document represents components of the legal health record. It is not the complete legal health record.[facility]
--- OUTSIDE RECORDS SUMMARY | 2024-12-22 15:41 | XMS_ITS | Encounter Summary ---
Author Organization [facility] Address [address] [place] [address] Phone Care Team Providers Care Database Manager Name Role Phone Pricila Castellanos MD Unavailable [phone] Ronny Lo MD Unavailable [phone] Ronny Lo MD Primary Care Provider [phone] Encounter Details Date Type Department Care Team (Latest Contact Info) Description 02/29/2024 Transcribe Orders [facility] [address] [phone] Caprice Murray, PA 10 [place] [address] Gastroesophageal reflux disease with esophagitis without hemorrhage [...] high school, GED, job training, learning the Japanese language, technical skills, or developing parenting skills)? [...] housing situation today? I have negro sing 10/08/2023 How many times have you move [...] Description 01/24/2025 1:45 PM EST Office Visit [facility] Gastroenterology Clinic 10 [place] [address] Unknown, Unknown, Caprice Machuca PA-C 10 [facility] 2 [place] [address] 03/20/2025 3:40 PM EST Office [facility] 45 [facility]2 [place] [address] Christian Jackson MD, PhD [address] [place] [address] [email or web address] Scheduled Procedures Name Priority Associated Diagnoses Date/Ti me ESOPHAGEAL FUNCTION TEST PH WITH IMPEDANCE CATHETER Gastroesophageal reflux disease, unspecified whether esophagitis present documented as of this encounter Results * CBC (02/29/2024 2:49 PM EST) WBC 4.02 4.00 - 11.00 K/uL [facility] RBC 4.09 4.00 - 5.20 M/uL [facility] HGB 12.3 12.0 - 16.0 g/dL [facility] HCT 38.2 36.0 - 46.0 % [facility] PLT 223 150 - 450 K/uL [facility] MCV 93.4 80.0 - 100.0 fL [facility] MCH 30.1 27.0 - 31.0 pg [facility] MCHC 32.2 32.0 - 36.0 g/dL [facility] RDW 11.9 11.5 - 14.5 % [facility] MPV 11.5 8.4 - 12.0 fL [facility] NRBC 0.00 0.00 /100 WBCs [facility] ABSOLUTE NRBC 0.00 0.00 K/uL [facility] Blood 02/29/2024 2:49 PM EST 02/29/2024 2:52 PM EST us Caprice OSORIO [facility] BLOOD ORDERABLES Final Result [facility] 30 [place] [address] documented in this encounter Visit Diagnoses Diagnosis Gastroesophageal reflux disease with esophagitis without hemorrhage- Primary documented in this encounter Additional Health Concerns Assessment Noted Time PHQ-2 Depression Total Score: 0 10/08/19 24 3:26 PM EDT documented as of this encounter Care Teams Database Manager Relationship Specialty Start Date End Date Ronny Lo MD [address] [place] [address], [address] [place] [address] PCP - General Internal Medicine 06/21/18 Pricila Castellanos MD [address] [place] [address], [address] [place] [address] Historical LMR Provider 12/14/16 Ronny Lo MD [address] [place] [address], [address] [place] [address] Historical LMR Provider 12/14/16 documented as of this encounter Additional Source Comments The information contained in this document represents components of the legal health record. It is not the complete legal health record.[facility]
--- OUTSIDE RECORDS SUMMARY | 2024-12-22 15:41 | XMS_ITS | Encounter Summary ---
Author Organization [facility] Address [address] [address] Phone Care Team Providers Care Mechanic'S Assistant Name Role Phone Dirk Estes MD Unavailable [phone] Barbi Zambrano MD Unavailable [phone] Ysabel Lynch FELT PAD CUTTER Unavailable Pricila Castellanos MD Unavailable Jordin Barker BLOCKER METAL BASE Unavailable [phone] Rubina Ivey FELT PAD CUTTER Unavailable [phone] Stephanie Vera DO Unavailable [phone] Ronny Lo MD Unavailable [phone] Daniel Horvath MD Unavailable [phone] Bo Ang BLOCKER METAL BASE Unavailable Ronny Lo MD Primary Care Provider [phone] Ronny Lo MD Unavailable [phone] Encounter Details Date Type Department Care Team (Late st Contact Info) Description 09/05/2020 Procedure Pass [facility], [address] [address] Social History Tobacco Use Types Packs/Day Years [...] Description 01/24/2025 1:45 PM EST Office Visit [facility] Gastroenterology Clinic 10 [place] [address] Unknown, Unknown, Caprice Machuca PA-C [address] [address] [email or web address] 03/20/2025 3:40 PM EST Office Visit [facility] Medical [facility] 45 [facility]2 [place] [address] Christian Jackson MD, PhD [address] [place] [address] [email or web address] Scheduled Procedures Name Priority Associated Diagnoses Date/Ti me ESOPHAGEAL FUNCTION TEST PH WITH IMPEDANCE CATHETER Gastroesophageal reflux disease, unspecified whether esophagitis present documented as of this encounter Visit Diagnoses Not on filedocumented in this encounter Additional Health Concerns Infection Onset Date Last Indicated Resolved Time CoV-Risk 07/16/2021 07/16/2021 07/27/2021 1:24 AM EDT CoV-Exposed Comment:Recent close contact documented in the COVID-19 PCR/PRO order 09/12/2021 09/16/2021 10/03/2021 1:22 AM E DT CoV-Presumed 09/17/2021 09/17/2021 10/08/2021 1:21 AM EDT Assessment Noted Time PHQ-2 Depression Total Score: 0 12/25/19 11:48 AM EDT documented as of this encounter Care Teams Mechanic'S Assistant Relationship Specialty Start Date End Date Ronny Lo MD [address] [place] [address], [address] [place] [address] PCP - General Internal Medicine 06/21/18 Dirk Estes MD [address] [place] [address], [address] [place] [address] Historical LMR Provider 12/14/16 03/02/21 Barbi Zambrano MD [address] [place] [address] [email or web address] Historical LMR Provider 12/14/16 03/02/21 Ysabel Lynch NP [address] [place] [address] 2_[place] [address] [email or web address] Historical LMR Provider 12/14/16 03/02/21 Pricila Castellanos MD [address] [place] [address], [address] [place] [address] Historical LMR Provider 12/14/16 Jordin Barker, BLOCKER METAL BASE [address] [place] [address], [address] [place] [address] Historical LMR Provider 12/14/16 03/02/21 Rubina Ivey FELT PAD CUTTER [address] [place] [phone] Historical LMR Provider 12/14/16 2 Jody Stephaniejusta Green DO [address] [place] [address] Historical LMR Provider 12/14/16 2 Ronny Lo MD [address] [place] [address], [address] [place] [address] [email or web address] Historical LMR Provider 12/14/16 Daniel Horvath MD 22 [facility] Floor 1 [place] [address] [email or web address] Historical LMR Provider 12/14/16 03/02/21 Bo Ang CNP [address] [place] [address], [address] [place] [address] [email or web address] Historical LMR Provider 12/14/16 Ronny Lo MD [address] [place] [address], [address] [place] [address] Insurance Assigned Provider 06/26/18 06/28/22 documented as of this encounter Additional Source Comments The information contained in this document represents components of the legal health record. It is not the complete legal health record.[facility]
--- OUTSIDE RECORDS SUMMARY | 2024-12-22 15:41 | XMS_ITS | Encounter Summary ---
Author Organization [facility] Address [address] [employer] [place] [address] Phone Care Team Providers Care Corporate Relations Manager Name Role Phone Pricila Castellanos MD Unavailable [phone] Ronny Lo MD Unavailable [phone] Ronny Lo MD Primary Care Provider [phone] Reason for Visit * Reason Onset Date Comments Schedule recall Colonoscopy 12/01/2024 Encounter Details Date Type Department Care Team (Late st Contact Info) Description 12/01/2024 Telephone [facility] Gastroenterology [facility] 10 [place], [place] [phone] Caprice Murray PA-C [address] [phone] [email or web address] Schedule recall Colonoscopy Social History Tobacco Use Types Packs/Day Years [...] high school, GED, job training, learning the Greenlandic language, technical skills, or developing parenting skills)? [...] housing situation today? 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 Patient would like to go to [facility] and patient would like to schedule with . documented in this encounter Plan of Treatment Upcoming Encounters Date Type Department Care Team (Late st Contact Info) Description 01/24/2025 1:45 PM EST Office Visit [facility]astroenter[facility] 10 [place] [address] Unknown, Unknown, Caprice Machuca PA-C [address] [address] 03/20/2025 3:40 PM EST Office Visit [facility] 45 [facility] [place] [address] Christian Jackson MD, PhD [address] [place] [address] [email or web address] Scheduled Procedures Name Priority Associated Diagnoses Date/Ti me ESOPHAGEAL FUNCTION TEST PH WITH IMPEDANCE CATHETER Gastroesophageal reflux disease, unspecified whether esophagitis present documented as of this encounter Visit Diagnoses Not on filedocumented in this encounter Additional Health Concerns Assessment Noted Time PHQ-2 Depression Total Score: 0 10/25/19 2:10 PM EDT documented as of this encounter Care Teams Corporate Relations Manager Relationship Specialty Start Date End Date Ronny Lo MD [address] [place] [address], [address] [place] [address] [email or web address] PCP - General Internal Medicine 06/21/18 Pricila Castellanos MD [address] [place] [address], [address] [place] [address] [email or web address] Historical LMR Provider 12/14/16 Ronny Lo MD [address] [place] [address], [address] [place] [address] [email or web address] Historical LMR Provider 12/14/16 documented as of this encounter Additional Source Comments The information contained in this document represents components of the legal health record. It is not the complete legal health record.[facility]
--- OUTSIDE RECORDS SUMMARY | 2024-12-22 15:41 | XMS_ITS | Encounter Summary ---
Author Organization [facility] Address [address] [facility] [facility] [address] [place] [address] Phone Care Team Providers Care Interactive Media Marketing Strategist Name Role Phone Pricila Castellanos MD Unavailable [phone] Ronny Lo MD Unavailable [phone] Ronny Lo MD Primary Care Provider [phone] Ronny Lo MD Unavailable [phone] Encounter Details Date Type Department Care Team (Late Contact Info) Description 12/09/2021 Procedure Pass [facility] Endoscopy Admitting Dept Virtual Department [address] [place] [address] Social History Tobacco Use Types Packs/Day Years [...] Description 01/24/2025 1:45 PM EST Office Visit [facility] Gastroenterology Clinic 10 [place] [address] Unknown, Unknown, Caprice Machuca PA-C 10 [facility] 2 [place] [address] [email or web address] 03/20/2025 3:40 PM EST Office Visit [facility] [address] [facility]2 [place] [address] Christian Jackson MD, PhD [address] [place] [address] [email or web address] Scheduled Procedures Name Priority Associated Diagnoses Date/Ti me ESOPHAGEAL FUNCTION TEST PH WITH IMPEDANCE CATHETER Gastroesophageal reflux disease, unspecified whether esophagitis present documented as of this encounter Visit Diagnoses Not on filedocumented in this encounter Additional Health Concerns Assessment Noted Time PHQ-2 Depression Total Score: 0 12/25/19 18 11:48 AM EDT documented as of this encounter Care Teams Interactive Media Marketing Strategist Relationship Specialty Start Date End Date Ronny Lo MD [address] [place] [address], [address] [place] [address] PCP - General Internal Medicine 06/21/18 Pricila Castellanos MD [address] [place] [address], [address] [place] [address] [email or web address] Historical LMR Provider 12/14/16 Ronny Lo MD [address] [place] [address], [address] [place] [address] Historical LMR Provider 12/14/16 Ronny Lo MD [address] [place] [address], [address] [place] [address] [email or web address] Insurance Assigned Provider 06/26/18 06/28/22 documented as of this encounter Additional Source Comments The information contained in this document represents components of the legal health record. It is not the complete legal health record.[facility]
--- OUTSIDE RECORDS SUMMARY | 2024-12-22 15:41 | XMS_ITS | Encounter Summary ---
Author Organization [facility] Address [address] [address] [address] Phone Care Team Providers Care Associate Professor Of Chemistry Name Role Phone Ronny Lo MD Primary Care Provider + [phone] Dirk Estes MD Unavailable [phone] Barbi Zambrano MD Unavailable [phone] Ysabel Lynch ENGINE COWLING INSTALLER Unavailable [phone] Pricila Castellanos MD Unavailable [phone] Jordin Barker ENVIRONMENTAL SERVICES SPECIALIST Unavailable [phone] Rubina Ivey ENGINE COWLING INSTALLER Unavailable [phone] Stephanie Vera DO Unavailable [phone] Ronny Lo MD Unavailable [phone] Daniel Horvath MD Unavailable [phone] Bo Ang ENVIRONMENTAL SERVICES SPECIALIST Unavailable [phone] Jordin Barker ENVIRONMENTAL SERVICES SPECIALIST Primary Care Provider + Ronny Lo MD Primary Care Provider + Ronny Lo MD Unavailable [phone] Encounter Details Date Type Department Care Team (Late st Contact Info) Description 05/18/2017 Ancillary Orders [place] [address] [place] [address] Ronny Lo MD [address] [place] [address], [address] [place] [address] [email or web address] Breast screening Social History [...] Orientation Straight 06/10/2021 7: 56 AM EDT documented as of this encounter Plan of Treatment Upcoming Encounters Date Type Department Care Team (Late st Contact Info) Description 01/24/2025 1:45 PM EST Office Visit [facility] G[facility]ology Clinic [address] [place] [address] Unknown, Unknown, Caprice Machuca PA-C [address] [address] [email or web address] 03/20/2025 3:40 PM EST Office Visit [facility] [address] [facility]2 [place] [address] Christian Jackson MD, PhD [address] [place] [address] [email or web address] Scheduled Procedures Name Priority Associated Diagnoses Date/Ti me ESOPHAGEAL FUNCTION TEST PH WITH IMPEDANCE CATHETER Gastroesophageal reflux disease, unspecified whether esophagitis present documented as of this encounter Results * BI MAMMOGRAM SCREENING WITH TOMOSYNTHESIS WITH CAD (BILATERAL) (06/24/2017 3:19 PM EDT) Anatomical Region Laterality Modality Breast Left, Breast Right, Breast Bilateral Bila teral Mammography 06/24/2017 4:48 PM EDT Impressions 06/24/2017 4:51 PM EDT No mammographic evidence of malignancy. BI-RADS CATEGORY: 2 - Benign finding. DENSITY: The breast tissue is heterogeneously dense, an appearance which lowers the sensitivity of mammography. POS - CDHMAM2 Narrative 06/24/2017 4:51 PM EDT Standard digital full-field 2-D C view and two-plane tomographic imaging was performed and compared with multiple prior studies, most recently 04/09/2016, with utilization of computer-aided detection. The breast parenchyma is heterogeneously dense, somewhat limiting mammographic sensitivity. The stromal markings are essentially unchanged in overall appearance and distribution. No dominant spiculated mass, suspicious clustered microcalcifications, or focal zone of pathologic skin thickening or retraction are noted to have arisen in the interim. Scattered grossly benign-appearing microcalcifications are again noted bilaterally. Procedure Note Eva Ho MD - 06/24/2017 Standard digital full-field 2-D C view and two-plane tomographic imagingwas performed and compared with multiple prior studies, most kerysrda99/15/2017, with utilization of computer-aided detection. The breast parenchyma is heterogeneously dense, somewhat limitingmammographic sensitivity. The stromal markings are essentially unchangedin overall appearance and distribution. No dominant spiculated mass,suspicious clustered microcalcifications, or focal zone of pathologic skinthickening or retraction are noted to have arisen in the interim.Scattered grossly benign-appearing microcalcifications are again notedbilaterally. IMPRESSION: No mammographic evidence of malignancy. BI-RADS CATEGORY: 2 - Benign finding. DENSITY: The breast tissue is heterogeneously dense, an appearance whichlowers the sensitivity of mammography. POS - CDHMAM2 Ronny Lo MD IMG MG EXAMS Final [...] CoV-Presumed 09/17/2021 09/17/2021 10/08/2021 1:21 AM EDT documented as of this encounter Care Teams Associate Professor Of Chemistry Relationship Specialty Start Date End Date Ronny Lo MD [address] [place] [address], [address] [place] [address] PCP - General 12/11/16 12/23/17 Jordin Barker, ENVIRONMENTAL SERVICES SPECIALIST [address] [place] [address], [address] [place] [address] PCP - General Family Medicine 12/24/17 06/20/18 Ronny Lo MD [address] [place] [address], [address] [place] [address] PCP - General Internal Medicine 06/21/18 Dirk Estes MD [address] [place] [address], [address] [place] [address] Historical LMR Provider 12/14/16 03/02/21 Barbi Zambrano MD [address] [place] [address] [email or web address] Historical LMR Provider 12/14/16 03/02/21 Ysabel Lynch, ELIZABETH [address] [place] [address] 2_[place] [address] [email or web address] Historical LMR Provider 12/14/16 03/02/21 Pricila Castellanos MD [address] [facility], [address] [place] [address] [email or web address] Historical LMR Provider 12/14/16 Jordin Barker, ENVIRONMENTAL SERVICES SPECIALIST [address] [place] [address], [address] [place] [address] Historical LMR Provider 12/14/16 03/02/21 Rubina Ivey ENGINE COWLING INSTALLER [address] [place] [address] [place] [id number] Historical LMR Provider 12/14/16 2 Stephanie Vera DO [address] [place] [address] Historical LMR Provider 12/14/16 2 Ronny Lo MD [address] [place] [address], [address] [place] [address] [email or web address] Historical LMR Provider 12/14/16 Daniel Horvath MD 22 [facility] Floor 1 [place] [address] [email or web address] Historical LMR Provider 12/14/16 03/02/21 Bo Ang, RUSS [address] [place] [address], [address] [place] [address] [email or web address] Historical LMR Provider 12/14/16 Ronny Lo MD [address] [place] [address], [address] [place] [address] [email or web address] Insurance Assigned Provider 06/26/18 06/28/22 documented as of this encounter Additional Source Comments The information contained in this document represents components of the legal health record. It is not the complete legal health record.[facility]
--- OUTSIDE RECORDS SUMMARY | 2024-12-22 15:41 | XMS_ITS | Encounter Summary ---
Author Organization [facility] Address [address] [facility] [address] [place] [address] Phone Care Team Providers Care Gravity Prospecting Operator Name Role Phone Pricila Castellanos MD Unavailable [phone] Ronny Lo MD Unavailable [phone] Ronny Lo MD Primary Care Provider Encounter Details Date Type Department Care Team (Late st Contact Info) Description 11/09/2024 Procedure Pass [facility] Endoscopy Department [address] [place] [address] Social History Tobacco Use Types Packs/Day Years [...] high school, GED, job training, learning the [place] language, technical skills, or developing parenting skills)? [...] is your housing situation today? I have ngero wall 10/24/2024 How many times have you [...] Description 01/24/2025 1:45 PM EST Office Visit [facility] Gastroenterology Clinic [address] [place] [phone] Unknown, Unknown, Caprice Machuca PA-C 10 [facility] 2 [place] [address] 03/20/2025 3:40 PM EST Office Visit [facility] 45 [facility]2-2 [place] [address] Christian Jackson MD, PhD [address] [place] [id number] [email or web address] Scheduled Procedures Name Priority Associated Diagnoses Date/Ti me ESOPHAGEAL FUNCTION TEST PH WITH IMPEDANCE CATHETER Gastroesophageal reflux disease, unspecified whether esophagitis present documented as of this encounter Visit Diagnoses Not on filedocumented in this encounter Additional Health Concerns Assessment Noted Time PHQ-2 Depression Total Score: 0 10/25/19 25 2:10 PM EDT documented as of this encounter Care Teams Gravity Prospecting Operator Relationship Specialty Start Date End Date Ronny Lo MD [address] [place] [address], [address] [place] [address] PCP - General Internal Medicine 06/21/18 Pricila Castellanos MD [address] [place] [address], [address] [place] [address] [email or web address] Historical LMR Provider 12/14/16 Ronny Lo MD [address] [place] [address], [address] [place] [address] Historical LMR Provider 12/14/16 documented as of this encounter Additional Source Comments The information contained in this document represents components of the legal health record. It is not the complete legal health record.[facility]
== END 2024-12-22 14:10 | disposition home or self-care (01) ==
LOC: HO.HSMS 12:47
PROVIDERS: PCP Pediatrics; Visit Provider Nurse Practitioner Family
DX: G43.709 Chronic migraine without aura, not intractable, without status migrainosus (principal); G24.3 Spasmodic torticollis; M54.81 Occipital neuralgia
CPT/HCPCS: 99214